=== PATIENT | male | born 1950 | race Two or more races ===

== ENCOUNTER 2024-05-24 17:55 | Inpatient (IN) | payer MEDICARE, MEDICAID ==
[~2024-05-24] VITALS: Ht 172.7 cm; Wt 83.0 kg
[2024-05-24 18:30] VITALS: PULSE 98; RESP 12; O2SAT 98
[2024-05-24 18:36] LABS: Basophils # (auto) 0 10 ^3/uL (0-0.2); Basophils % (auto) 0.2 % (0.0-2.0); Eosinophils # (auto) 0.2 10 ^3/uL (0-0.8); Eosinophils % (auto) 3.7 % (0.0-7.0); Hematocrit 41.7 % (41.0-53.0); Lymphocytes # (auto) 1.6 10 ^3/uL (0.4-5.4); Lymphocytes % (auto) 24.5 % (10.0-50.0); Mean Corpuscular Hemoglobin 30.5 pg (28.0-32.0); Mean Corpuscular Hgb Conc. 33.6 g/dL (32.0-36.0); Mean Corpuscular Volume 90.8 fL (80.0-100.0); Monocytes # (auto) 0.5 10 ^3/uL (0-1.3); Monocytes % (auto) 7.9 % (0.0-12.0); Neutrophils # (auto) 4.3 10 ^3/uL (1.6-8.6); Neutrophils % (auto) 63.7 % (37.0-80.0); Platelet Count (auto) 190 10^3/uL (140-450); Red Blood Cells 4.59 10^6/uL (4.5-5.90); Red Cell Distribution Width 13.7 % (11.8-14.3); White Blood Cell 6.7 10^3/uL (4.4-10.8)
--- NOTE | 2024-05-24 18:48 | ED.PDOC ---
HPI (NEURO) HPI Comments 74y F who presents to the ED via EMS for chief complaint of generalized weakness. Per EMS, pt son called after pt had near syncopal episode at home. Pt son upon EMS arrival states pt has been having this generalized weakness for the past 2 days getting progressively worse. EMS states pt had low SBP upon arrival and pt was given 100 ml ns with improvement of blood pressure and was brought to the ED for further evaluation. Pt in the ED, is alert and oriented but states he is not in pain. Pt has BP of 129/55 in the ED with all other vitals in normal range. Pt otherwise denies any other symptoms at this time. Chief Complaint: General Weakness Time Seen by MD: 18:43 Reviewed Notes: Software Asset Management Analyst Notes, Medications Information Source: Patient, Emergency Med Personnel Mode of Arrival: EMS Brought in by: EMS Past Medical History PAST MEDICAL HISTORY: Unknown Surgical History: Unknown Family History Family History: Unknown Social History Smoker: Non-Smoker Alcohol: Denies ETOH Use Drugs: Denies Drug Use Lives In: Home Constitutional: denies: chills, diaphoresis, fatigue, fever, malaise, sweats, weakness, others EENTM: denies: blurred vision, double vision, ear bleeding, ear discharge, ear drainage, ear pain, ear ringing, eye pain, eye redness, hearing loss, mouth pain, mouth swelling, nasal discharge, nose bleeding, nose congestion, nose pain, photophobia, tearing, throat pain, throat swelling, voice changes, others Respiratory: denies: cough, hemoptysis, orthopnea, SOB at rest, shortness of breath, SOB with excertion, stridor, wheezing, others Cardiovascular: denies: chest pain, dizzy spells, diaphoresis, Dyspnea on exertion, edema, irregular heart beat, left arm pain, lightheadedness, p alpitations, PND, syncope, others Gastrointestinal: denies: abdomen distended, abdominal pain, blood streaked bowels, constipated, diarrhea, dysphagia, difficulty swallowing, hematemesis, melena, nausea, poor appetite, poor fluid intake, rectal bleeding, rectal pain, vomiting, others Genitourinary: denies: burning, dysuria, flank pain, frequency, hematuria, incontinence, penile discharge, penile sore, pain, testicle pain, testicle swelling, urgency, others Neurological: reports: weakness; denies: dizziness, fainting, headache, left sided numbness, left sided weakness, numbness, paresthesia, pre-existing deficit, right sided numbness, right sided weakness, seizure, speech problems, tingling, tremors, others Musculoskeletal: denies: back pain, gout, joint pain, joint swelling, muscle pain, muscle stiffness, neck pain, others Integumetry: denies: bruises, change in color, change in hair/nails, dryness, laceration, lesions, lumps, rash, wounds, others Allergic/Immunocompromised: denies: Difficulty Healing, Frequent Infections, Hives, Itching, others Hematologic/Lymphatic: denies: anemia, blood clots, easy bleeding, easy bruising, swollen glands, others Endocrine: denies: excessive hunger, excessive sweating, excessive thirst, excessive urination, flushing, intolerance to cold, intolerance to heat, unexplained weight gain, unexplained weight loss, others Psychiatric: denies: anxiety, bipolar disorder, depression, hopeless, panic disorder, schizophrenia, sleepless, suicidal, others All Other Systems: Reviewed and Negative Physical Exam General Appearance: No Apparent Distress, Normal HEENT: Normal ENT Inspection, Pharynx Normal, TMs Normal Neck: Full Range of Motion, Non-Tender, Normal, Normal Inspection Respiratory: Chest Non-Tender, Lungs Clear, No Accessory Muscle Use, No Respiratory Distress, Normal Breath Sounds Cardiovascular: No Edema, No JVD, No Murmur, No Gallop, Normal Peripheral Pulses, Regular Rate/Rhythm Breast Exam: Deferred Gastrointestinal: No Organomegaly, Non Tender, No Pulsatile Mass, Normal Bowel Sounds, Soft Genitalia: Deferred Pelvic: Deferred Rectal: Deferred Extremities: No calf tenderness, Normal capillary refill, Normal inspection, Normal range of motion, Non-tender, No pedal edema Musculoskeletal : Apperance: Normal Neurologic: Alert, guest relations officer II-XII nml as Tested, No Motor Deficits, Normal Affect, Normal Mood, No Sensory Deficits Cerebellar Function: Normal Reflexes: NOT DONE Skin: Dry, Normal Color, Warm Lymphatic: No Adenopathy Was a procedure done? Was a procedure done?: No Differential Diagnosis (SZ) General Weakness: Anemia, Dehydration, Electrolyte imbalance, Encephalopathy, Hypoglycemia, Hypotension, Vertigo: central, Vertigo: peripheral Headache: Post Lumber Puncture, Sinusitis, Trigeminal Neuralgia X-Ray, Labs, Meds, VS Vital Signs Date Time Temp Pulse Resp B/P (MAP) Pulse Ox O2 Delivery O2 Flow Rate FiO2 05/24/24 21:21 94 05/24/24 21:00 94 12 111/54 (73) 96 05/24/24 20:00 97 05/24/24 19:30 97 14 97 Room Air* 0 05/24/24 19:30 97.4 97 14 105/50 (68) 97 97.4 05/24/24 18:30 98 12 98 Room Air* 0 05/24/24 18:30 98 12 129/55 (79) 98 05/24/24 18:15 98.2 101 18 135/79 (97) 97 05/24/24 18:00 98 Lab Test 05/24/24 21:31 05/24/24 19:35 05/24/24 19:24 05/24/24 18:24 Range/Units Troponin I High Sensitivity 4 4 5 </=54 ng/L Urine Color Colorless Yellow Urine Clarity Clear Clear Urine pH 5.0 5.0-9.0 Urine Specific [place] 1.008 1.001-1.035 Urine Protein 1+ H Negative Urine Ketones Negative Negative Urine Blood Negative Negative /uL Urine Nitrite Negative Negative Urine Bilirubin Negative Negative Urine Urobilinogen Normal Negative mg/dL Urine Leukocyte Esterase 1+ Negative /uL Urine RBC 1 0 - 3 /hpf Urine WBC 3 0 - 3 /hpf Urine Squamous Epithelial Cells None seen <5 /hpf Urine Bacteria None seen None Seen /hpf Urine Hyaline Casts Few 0 - 2 /lpf Urine Glucose 3+ H Normal mg/dL White Blood Count 6.7 4.4-10.8 10^3/uL Red Blood Count 4.59 4.5-5.90 10^6/uL Hemoglobin 14.0 13.5-17.5 g/dL Hematocrit 41.7 41.0-53.0 % Mean Corpuscular Volume 90.8 80.0-100.0 fL Mean Corpuscular Hemoglobin 30.5 28.0-32.0 pg Mean Corpuscular Hemoglobin Concent 33.6 32.0-36.0 g/dL Red Cell Distribution Width 13.7 11.8-14.3 % Platelet Count 190 140-450 10^3/uL Mean Platelet Volume 8.8 6.9-10.8 fL Neutrophils (%) (Auto) 63.7 37.0-80.0 % Lymphocytes (%) (Auto) 24.5 10.0-50.0 % Monocytes (%) (Auto) 7.9 0.0-12.0 % Eosinophils (%) (Auto) 3.7 0.0-7.0 % Basophils (%) (Auto) 0.2 0.0-2.0 % Neutrophils # (Auto) 4.3 1.6-8.6 10 ^3/uL Lymphocytes # (Auto) 1.6 0.4-5.4 10 ^3/uL Monocytes # (Auto) 0.5 0-1.3 10 ^3/uL Eosinophils # (Auto) 0.2 0-0.8 10 ^3/uL Basophils # (Auto) 0 0-0.2 10 ^3/uL Nucleated Red Blood Cells 0.0 % Sodium Level 136 136-145 mmol/L Potassium Level 4.8 3.5-5.1 mmol/L Chloride Level 105 98-107 mmol/L Carbon Dioxide Level 18 L 20-31 mmol/L Anion Gap 13 5-15 Blood Urea Nitrogen 42 H 9-23 mg/dL Creatinine 3.45 H 0.700-1.30 mg/dL Glomerular Filtration Rate Calc 18 >90 mL/min BUN/Creatinine Ratio 12.2 10.0-20.0 Serum Glucose 310 H 74-106 mg/dL Calcium Level 9.6 8.7-10.4 mg/dL Total Bilirubin 0.4 0.2-1.0 mg/dL Aspartate Amino Transferase (AST) 35 13-40 U/L Alanine Aminotransferase (ALT) 33 7-40 U/L Alkaline Phosphatase 104 46-116 U/L Total Protein 7.6 5.7-8.2 g/dL Albumin 4.8 3.2-4.8 g/dL [address] [address] Ph: [phone] DIAGNOSTIC IMAGING Diagnostic Imaging Report : [id number] Signed PATIENT: JASON LIND ACCT: [id number] UNIT: [id number] : 1950 LOC: ER ROOM / BED: / AGE / SEX: 74 / M ADM STATUS: REG ER SERVICE 08 ORDERING PHYSICIAN: ESTRELLA DAVIS MD PROCEDURE(s): HWOCT - HEAD WITHOUT CONTRAST REASON: syncope ORDER NUMBER(s): [id number], ACCESSION NUMBER(s): [id number] EXAM: CT HEAD WITHOUT CONTRAST INDICATION: syncope TECHNIQUE: CT of the head without intravenous contrast. Radiation Dose : 1. Head: CT Dose: CTDI volume is 66 mGy. Dose-length product is 1176 mGy*cm The dose indicators for CT are the volume Computed Tomography (CT) Dose Index (CTDIvol) and the Dose Length Product (DLP), and are measured in units of mGy and mGy-cm, respectively. These indicators are not patient dose, but values generated from the CT scanner acquisition factors. The report includes radiation exposure data for exposures received during this examination. COMPARISON: None FINDINGS: There is no evidence of acute intracranial hemorrhage, extra-axial collection, mass effect, midline shift, herniation or hydrocephalus. The ventricles, sulci and cisterns are age appropriate. The orozco-white differentiation is intact. Patchy periventricular and subcortical white matter hypoattenuation is nonspecific but may be related to small vessel ischemic disease. The visualized paranasal sinuses and mastoid air cells are clear. The surrounding soft tissues and osseous structures are unremarkable. IMPRESSION: 1. No acute intracranial abnormality. Radiation optimization: All CT scans at this facility use at least one of these dose optimization techniques: automated exposure control mA and/or kV adjustment per patient size (includes targeted exams where dose is matched to clinical indication) or iterative reconstruction. ATED BY: WALLY ROJAS MD DICTATED DATE/TIME: 05/24/242105 SIGNED BY: WALLY ROJAS MD SIGNED DATE/TIME: 05/24/242105 CC: [place] [id number] Ph: [phone] DIAGNOSTIC IMAGING Diagnostic Imaging Report : [id number] Signed PATIENT: JASON LIND ACCT: [id number] UNIT: [id number] : 1950 LOC: ER ROOM / BED: / AGE / SEX: 74 / M ADM STATUS: REG ER SERVICE 08 ORDERING PHYSICIAN: ESTRELLA DAVIS MD PROCEDURE(s): CXRP - CHEST PORTABLE REASON: syncope ORDER NUMBER(s): [id number], ACCESSION NUMBER(s): [id number] CHEST RADIOGRAPH Indication: syncope Technique: Single frontal view of the chest was obtained Comparison: None FINDINGS: Lines and Tubes: None Lungs: No focal consolidation. Pleura: No effusion. No pneumothorax. Cardiomediastinal contours: Unremarkable Bones: No acute osseous abnormality. IMPRESSION: No acute cardiopulmonary disease. ATED BY: SOY GOMEZ DO DICTATED DATE/TIME: 05/24/242107 SIGNED BY: SOY GOMEZ DO SIGNED DATE/TIME: 05/24/242107 CC: Time of 1ST Reevaluation: 19:15 Reevaluation 1ST: Unchanged Patient Education/Counseling: Diagnosis, Treatment Family Education/Counseling: No Family Present Departure 1 Departure Time of Disposition: 22:38 (Patient with a worsening weakness and an MONICO. Patient also with hyperglycemia. Patient's CBC was unremarkable BNP was remarkable for an elevated creatinine and elevated glucose. A personally evaluated the patient's CT brain which is shows a benign brain. We will admit patient for further workup) Impression: Primary Impression: Weakness Additional Impressions: MONICO (acute kidney injury) Uncontrolled diabetes mellitus Qualified Codes: E11.65 - Type 2 diabetes mellitus with hyperglycemia Disposition: ADMITTED INPATIENT Admit to: Med Surg Condition: Serious Critical Care Note Critical Care Time?: No Stability Stability form required: No Heart Score Heart Score: Heart Score Response (Comments) Value History N/A 0 EKG N/A 0 Age N/A 0 Risk Factors N/A 0 Troponin N/A 0 Total 0 I personally scribed for ESTRELLA DAVIS MD ([email or web address]) on 05/24/24 at 18:48. Electronically submitted by Loni Menjivar ([employer]). I personally scribed for ESTRELLA DAVIS MD (NINAO) on 05/24/24 at 21:21. Electronically submitted by Loni Menjivar ([employer]). ESTRELLA DAVIS MD May 24, 2024 18:48
[2024-05-24 18:51] LABS: Alanine Aminotransferase 33 U/L (7-40); Albumin 4.8 g/dL (3.2-4.8); Alkaline Phosphatase 104 U/L (46-116); Anion Gap 13 (5-15); Aspartate Aminotransferase 35 U/L (13-40); BUN/Creatinine Ratio 12.2 (10.0-20.0); Blood Urea Nitrogen 42 mg/dL (9-23); Calcium 9.6 mg/dL (8.7-10.4); Carbon Dioxide 18 mmol/L (20-31); Chloride 105 mmol/L (98-107); Glucose 310 mg/dL (74-106); Potassium 4.8 mmol/L (3.5-5.1); Sodium 136 mmol/L (136-145)
[2024-05-24 18:52] LABS: Bilirubin, Total 0.4 mg/dL (0.2-1.0); Total Protein 7.6 g/dL (5.7-8.2)
[2024-05-24 19:30] VITALS: PULSE 97; RESP 14; O2SAT 97
[2024-05-24 19:38] LABS: Urine Bacteria None Seen /hpf (None Seen)
[2024-05-24 19:50] LABS: Urine Blood Negative /uL (Negative); Urine Clarity Clear (Clear); Urine Color Colorless (Yellow); Urine Hyaline Cast FEW /lpf (0 - 2); Urine Protein, UAD 1+ (Negative); Urine Specific Gravity 1.008 (1.001-1.035); Urine Urobilinogen Normal (Negative); Urine WBC 3 /hpf (0 - 3)
--- NOTE | 2024-05-24 21:08 | DVH ---
EXAM: CT HEAD WITHOUT CONTRAST INDICATION: syncope TECHNIQUE: CT of the head without intravenous contrast. Radiation Dose : 1. Head: CT Dose: CTDI volume is 66 mGy. Dose-length product is 1176 mGy*cm The dose indicators for CT are the volume Computed Tomography (CT) Dose Index (CTDIvol) and the Dose Length Product (DLP), and are measured in units of mGy and mGy-cm, respectively. These indicators are not patient dose, but values generated from the CT scanner acquisition factors. The report includes radiation exposure data for exposures received during this examination. COMPARISON: None FINDINGS: There is no evidence of acute intracranial hemorrhage, extra-axial collection, mass effect, midline s hift, herniation or hydrocephalus. The ventricles, sulci and cisterns are age appropriate. The orozco-white differentiation is intact. Patchy periventricular and subcortical white matter hypoattenuation is nonspecific but may be related to small vessel ischemic disease. The visualized paranasal sinuses and mastoid air cells are clear. The surrounding soft tissues and osseous structures are unremarkable. IMPRESSION: 1. No acute intracranial abnormality. Radiation optimization: All CT scans at this facility use at least one of these dose optimization vivian hniques: automated exposure control mA and/or kV adjustment per patient size (includes targeted exam s where dose is matched to clinical indication) or iterative reconstruction.
--- NOTE | 2024-05-24 21:11 | DVH ---
CHEST RADIOGRAPH Indication: syncope Technique: Single frontal view of the chest was obtained Comparison: None FINDINGS: Lines and Tubes: None Lungs: No focal consolidation. Pleura: No effusion. No pneumothorax. Cardiomediastinal contours: Unremarkable Bones: No acute osseous abnormality. IMPRESSION: No acute cardiopulmonary disease.
[2024-05-24] MEDS: SODIUM CHLORIDE 0.9% 1,000 ML IV ONE (22:41)
[2024-05-24] MEDS ORDERED: ONDANSETRON HCL 4 MG/2 ML VIAL IV PRN (23:15)
[2024-05-24] MEDS ORDERED: DEXTROSE (50%) 50ML SYRG IV PRN (23:15)
[2024-05-24] MEDS ORDERED: DOCUSATE SOD 100 MG CAP PO PRN (23:15)
[2024-05-24] MEDS ORDERED: hydrALAZINE HCL 20 MG/ML VL IV PRN (23:15)
--- NOTE | 2024-05-24 23:33 | DVHHP2 ---
History of Present Illness Reason for Visit: Generalized weakness History of Present Illness The patient is a 74-year-old male with past medical history of hypertension, DM, and hyperlipidemia who presented to [facility] ED for evaluation of generalized weakness. As reported by EMS, patient's son called after patient had near syncopal episode at home. Patient has been having generalized weakness for the past 2 days, getting worse today that prompted this visit. Patient was seen and evaluated in the ED, laboratory data shows WBC 6.7, platelets 190, sodium 136, potassium 4.8, BUN 42, creatinine 3.45, glucose 310, troponin 5. Head CT showed no acute intracranial abnormality. Please see medication orders section in the computer. On my assessment, patient denied chest pain, no headache, no dizziness, no diaphoresis, no shortness of breath, no nausea, no vomiting, no fever, no chills. Patient was admitted for further evaluation and medical management. Past Medical History DM, hypertension, HLD. Past Surgical History No surgical history on file Family History Reviewed, noncontributory to the management of this case. Past Social History The patient lives at home, denies smoking, alcohol or illicit drugs abuse. Review of Systems Constitutional: Yes: Weakness; No: Fever, Chills, Sweats, Malaise, Other Eyes: No: Pain, Vision change, Conjunctivae inflammation, Eyelid inflammation, Other, Redness ENT: No: Ear pain, Ear discharge, Nose pain, Nose discharge, Nose congestion, Mouth pain, Mouth swelling, Throat pain, Throat swelling, Other Respiratory: No: Cough, Dry, Shortness of breath, SOB with excertion, Wheezing, Hemoptysis, Pleuritic Pain, Sputum, Wheezing, Other Cardiovascular: No: Chest Pain, Palpitations, Orthopnea, Paroxysmal Noc. Dyspnea, Edema, Lt Headedness, Other Gastrointestinal: No: Nausea, Vomiting, Abdominal Pain, Diarrhea, Constipation, Melena, Hematochezia, Other Genitourinary: No Dysuria, No Frequency, No Incontinence, No Hematuria, No Retention, No Other Musculoskeletal: No: other, neck pain, shoulder pain, arm pain, back pain, hand pain, leg pain, foot pain Skin: No: Rash, Lesions, Jaundice, Bruising, Other Neurological: No: Weakness, Numbness, Incoordination, Change in speech, Confusion, Seizures, Other Allergies: Coded Allergies: NO KNOWN ALLERGIES (Unverified , 05/25/24) Medications Current Medications Medications Dose Ordered Sig/Flor Route Start Time Stop Time Status Last Admin Dose Admin Aspirin 81 mg DAILY PO 05/25/24 10:00 UNV Atorvastatin Calcium 10 mg HS PO 05/25/24 22:00 UNV Tamsulosin HCl 0.4 mg QPM PO 05/25/24 18:00 UNV Hydralazine HCl 10 mg Q6HP PRN IV 05/24/24 23:15 UNV Diagnostic Test (Pha) 1 strip ACHS 05/25/24 07:00 UNV Insulin Human Regular HS SC 05/25/24 22:00 UNV Insulin Human Regular AC SC 05/25/24 07:00 UNV Dextrose 50 ml UD PRN IV 05/24/24 23:15 UNV Sodium Chloride 1,000 ml @ 60 mls/hr [id number] IV 05/24/24 23:15 UNV Acetaminophen/ Hydrocodone Bitart 1 tab Q4HP PRN PO 05/24/24 23:15 UNV Ondansetron HCl 4 mg Q4HP PRN IV 05/24/24 23:15 UNV Docusate Sodium 100 mg BIDPRN PRN PO 05/24/24 23:15 UNV Acetaminophen 650 mg Q6HP PRN PO 05/24/24 23:15 UNV Exam Vital Signs Vital Signs Date Time Temp Pulse Resp B/P (MAP) Pulse Ox O2 Delivery O2 Flow Rate FiO2 05/24/24 21:21 94 05/24/24 21:00 12 111/54 (73) 96 05/24/24 19:30 Room Air* 0 21 05/24/24 19:30 97.4 97.4 General Appearance: Alert, Cooperative, No acute distress HEENT: Atraumatic, PERRLA, EOMI, Mucous membr. moist/pink Respiratory: Clear to auscultation, Normal air movement Cardiovascular: Regular rate, Normal S1, Normal S2, No murmurs Abdominal: Normal bowel sounds, Soft, No tenderness, No hepatospenomegaly, No masses Extremities: No clubbing, No cyanosis, No edema, Normal pulses, No tenderness/swelling Skin: No rashes, No breakdown, No significant lesion Neuro: Normal speech, Normal tone, Sensation intact, Cranial nerves 3-12 NL, Reflexes 2+, Other (Generalized weakness) Psych/Mental Status: Mental status NL, Mood NL Labs/Xrays Labs Test 05/24/24 21:31 05/24/24 19:35 05/24/24 18:24 Range/Units Troponin I High Sensitivity 4 </=54 ng/L Urine Color Colorless Yellow Urine Clarity Clear Clear Urine pH 5.0 5.0-9.0 Urine Specific [place] 1.008 1.001-1.035 Urine Protein 1+ H Negative Urine Ketones Negative Negative Urine Blood Negative Negative /uL Urine Nitrite Negative Negative Urine Bilirubin Negative Negative Urine Urobilinogen Normal Negative mg/dL Urine Leukocyte Esterase 1+ Negative /uL Urine RBC 1 0 - 3 /hpf Urine WBC 3 0 - 3 /hpf Urine Squamous Epithelial Cells None seen <5 /hpf Urine Bacteria None seen None Seen /hpf Urine Hyaline Casts Few 0 - 2 /lpf Urine Glucose 3+ H Normal mg/dL White Blood Count 6.7 4.4-10.8 10^3/uL Red Blood Count 4.59 4.5-5.90 10^6/uL Hemoglobin 14.0 13.5-17.5 g/dL Hematocrit 41.7 41.0-53.0 % Mean Corpuscular Volume 90.8 80.0-100.0 fL Mean Corpuscular Hemoglobin 30.5 28.0-32.0 pg Mean Corpuscular Hemoglobin Concent 33.6 32.0-36.0 g/dL Red Cell Distribution Width 13.7 11.8-14.3 % Platelet Count 190 140-450 10^3/uL Mean Platelet Volume 8.8 6.9-10.8 fL Neutrophils (%) (Auto) 63.7 37.0-80.0 % Lymphocytes (%) (Auto) 24.5 10.0-50.0 % Monocytes (%) (Auto) 7.9 0.0-12.0 % Eosinophils (%) (Auto) 3.7 0.0-7.0 % Basophils (%) (Auto) 0.2 0.0-2.0 % Neutrophils # (Auto) 4.3 1.6-8.6 10 ^3/uL Lymphocytes # (Auto) 1.6 0.4-5.4 10 ^3/uL Monocytes # (Auto) 0.5 0-1.3 10 ^3/uL Eosinophils # (Auto) 0.2 0-0.8 10 ^3/uL Basophils # (Auto) 0 0-0.2 10 ^3/uL Nucleated Red Blood Cells 0.0 % Sodium Level 136 136-145 mmol/L Potassium Level 4.8 3.5-5.1 mmol/L Chloride Level 105 98-107 mmol/L Carbon Dioxide Level 18 L 20-31 mmol/L Anion Gap 13 5-15 Blood Urea Nitrogen 42 H 9-23 mg/dL Creatinine 3.45 H 0.700-1.30 mg/dL Glomerular Filtration Rate Calc 18 >90 mL/min BUN/Creatinine Ratio 12.2 10.0-20.0 Serum Glucose 310 H 74-106 mg/dL Calcium Level 9.6 8.7-10.4 mg/dL Total Bilirubin 0.4 0.2-1.0 mg/dL Aspartate Amino Transferase (AST) 35 13-40 U/L Alanine Aminotransferase (ALT) 33 7-40 U/L Alkaline Phosphatase 104 46-116 U/L Total Protein 7.6 5.7-8.2 g/dL Albumin 4.8 3.2-4.8 g/dL PATIENT: JASON LIND ACCT: [id number] UNIT: [id number] : 1950 LOC: ER ROOM / BED: / AGE / SEX: 74 / M ADM STATUS: REG ER SERVICE 08 ORDERING PHYSICIAN: ESTRELLA DAVIS MD PROCEDURE(s): HWOCT - HEAD WITHOUT CONTRAST REASON: syncope ORDER NUMBER(s): [id number], ACCESSION NUMBER(s): [id number] EXAM: CT HEAD WITHOUT CONTRAST INDICATION: syncope TECHNIQUE: CT of the head without intravenous contrast. Radiation Dose : 1. Head: CT Dose: CTDI volume is 66 mGy. Dose-length product is 1176 mGy*cm The dose indicators for CT are the volume Computed Tomography (CT) Dose Index (CTDIvol) and the Dose Length Product (DLP), and are measured in units of mGy and mGy-cm, respectively. These indicators are not patient dose, but values generated from the CT scanner acquisition factors. The report includes radiation exposure data for exposures received during this examination. COMPARISON: None FINDINGS: There is no evidence of acute intracranial hemorrhage, extra-axial collection, mass effect, midline shift, herniation or hydrocephalus. The ventricles, sulci and cisterns are age appropriate. The orozco-white differentiation is intact. Patchy periventricular and subcortical white matter hypoattenuation is nons pecific but may be related to small vessel ischemic disease. The visualized paranasal sinuses and mastoid air cells are clear. The surrounding soft tissues and osseous structures are unremarkable. IMPRESSION: 1. No acute intracranial abnormality. ORDERING PHYSICIAN: ESTRELLA DAVIS MD PROCEDURE(s): CXRP - CHEST PORTABLE REASON: syncope ORDER NUMBER(s): [id number], ACCESSION NUMBER(s): [id number] CHEST RADIOGRAPH Indication: syncope Technique: Single frontal view of the chest was obtained Comparison: None FINDINGS: Lines and Tubes: None Lungs: No focal consolidation. Pleura: No effusion. No pneumothorax. Cardiomediastinal contours: Unremarkable Bones: No acute osseous abnormality. IMPRESSION: No acute cardiopulmonary disease. Assessment/Plan Assessment/Plan Generalized weakness MONICO (acute kidney injury) Uncontrolled diabetes mellitus Type 2 diabetes mellitus with hyperglycemia Plan 1. Admit to telemetry unit 2. Breathing treatment 3. Pain control management 4. Management of fluids and electrolytes 5. Consultation for hospitalist 6. Diagnostic tests head CT 7. DVT prophylaxis-on SCDs 8. Repeat labs CBC, CMP in a.m. 9. Continue with current medical management 10. Treatment plan discussed with patient and RN. Patient verbalized understanding. Plan discussed with: Patient, Other (RN) My Orders Orders - TODD MORALES DNP Procedure Category Date Status Time Aspirin Tablet PHA 05/25/24 Logged 10:00 Atorvastatin (Lipitor) PHA 05/25/24 Logged 22:00 Consistent DIET 05/25/24 Transmitted Carb(Ccho)Diabetes Breakfast Tamsulosin PHA 05/25/24 Logged Hydrochloride (Flomax) 18:00 Hydralazine Injection PHA 05/24/24 Logged (Apresoline Inject 23:15 *[facility] CONS 05/24/24 Transmitted -[place] 23:08 Glucose Blood PHA 05/25/24 Logged (Accu-Chek Comfort 07:00 Insulin R (Human) PHA 05/25/24 Logged (Insulin R) 22:00 Insulin R (Human) PHA 05/25/24 Logged (Insulin R) 07:00 Dextrose 50% Syringe PHA 05/24/24 Logged 23:15 Allergies CARMEN 05/24/24 In Process 23:08 Code Status CODE 05/24/24 Transmitted 23:08 Sodium Chloride 0.9% PHA 05/24/24 Logged 23:15 Oxygen Per Hour RT 05/24/24 Transmitted 23:08 Hydrocodone-Acet PHA 05/24/24 Logged 5/325mg Tab ([place] 23:15 Ondansetron Hcl PHA 05/24/24 Logged (Zofran) 23:15 Docusate Sodium PHA 05/24/24 Logged Capsule (Colace 23:15 Fall Risk Precautions CARMEN 05/24/[address] 23:08 Complete Blood Count LAB 05/25/24 Verified 04:00 Comprehensive LAB 05/25/24 Verified Metabolic Panel 04:00 Condition: Serious CARMEN 05/24/24 In Process 23:08 Acetaminophen Tablet [facility] 05/24/24 Logged (Tylenol Tablet) 23:15 Sequential CARMEN 05/24/24 In Process Compression Device Problem List: (1) Generalized weakness (2) Uncontrolled diabetes mellitus (3) MONICO (acute kidney injury) (4) Type 2 diabetes mellitus with hyperglycemia Date of Service: May 24, 2024 Billing Provider: TODD MORALES DNP Common Visit Codes: [id number] INP/OBS CARE (HIGH) TODD MORALES DNP May 24, 2024 23:33
[2024-05-24] MEDS ORDERED: NITROGLYCERIN 0.4 MG SL TAB SL PRN (23:45)
[2024-05-24] MEDS ORDERED: MORPHINE SULFATE INJ 2 MG/ml SYRG IV PRN (23:45)
[2024-05-25] VITALS (9 sets, daily range): BP systolic 120–145; BP diastolic 52–71; PULSE 87–102; RESP 14–18; TEMP 97.4–98; O2SAT 94–96
[2024-05-25] MEDS: SODIUM CHLORIDE 0.9% 1,000 ML IV SCH (02:18)
[2024-05-25] MEDS: ACCU-CHEK COMFORT CURVE STRIP VI SCH (06:20)
[2024-05-25] MEDS: InsuLIN REG 1unit/0.01ml Soln (100units/ml) SC SCH ×4 (06:23→21:45)
[2024-05-25 06:31] LABS: Basophils # (auto) 0 10 ^3/uL (0-0.2); Basophils % (auto) 0.3 % (0.0-2.0); Eosinophils # (auto) 0.3 10 ^3/uL (0-0.8); Eosinophils % (auto) 4.7 % (0.0-7.0); Hematocrit 39.2 % (41.0-53.0); Hemoglobin 13.3 g/dL (13.5-17.5); Lymphocytes # (auto) 1.9 10 ^3/uL (0.4-5.4); Lymphocytes % (auto) 26.9 % (10.0-50.0); Mean Corpuscular Hemoglobin 30.9 pg (28.0-32.0); Mean Corpuscular Volume 90.9 fL (80.0-100.0); Monocytes # (auto) 0.4 10 ^3/uL (0-1.3); Monocytes % (auto) 6.4 % (0.0-12.0); Neutrophils # (auto) 4.3 10 ^3/uL (1.6-8.6); Neutrophils % (auto) 61.7 % (37.0-80.0); Platelet Count (auto) 202 10^3/uL (140-450); Red Blood Cells 4.31 10^6/uL (4.5-5.90); Red Cell Distribution Width 13.6 % (11.8-14.3); White Blood Cell 6.9 10^3/uL (4.4-10.8)
[2024-05-25 06:43] LABS: Alanine Aminotransferase 27 U/L (7-40); Alkaline Phosphatase 98 U/L (46-116); Anion Gap 13 (5-15); BUN/Creatinine Ratio 10.8 (10.0-20.0); Blood Urea Nitrogen 37 mg/dL (9-23); Calcium 9.5 mg/dL (8.7-10.4); Carbon Dioxide 20 mmol/L (20-31); Chloride 107 mmol/L (98-107); Potassium 4.7 mmol/L (3.5-5.1); Sodium 140 mmol/L (136-145)
[2024-05-25 06:44] LABS: Albumin 4.6 g/dL (3.2-4.8); Aspartate Aminotransferase 24 U/L (13-40); Bilirubin, Total 0.5 mg/dL (0.2-1.0); Glucose 194 mg/dL (74-106); Total Protein 7.6 g/dL (5.7-8.2)
[2024-05-25] MEDS ORDERED: GEMF-66 PO (09:05)
[2024-05-25] MEDS ORDERED: FURO40TA4 PO (09:05)
[2024-05-25] MEDS ORDERED: ALLO100T PO (09:05)
[2024-05-25] MEDS ORDERED: ATOR40TA52 PO (09:05)
[2024-05-25] MEDS ORDERED: NETA0.02 EACHEYE (09:05)
[2024-05-25] MEDS ORDERED: OMEP1CAP70 PO (09:05)
[2024-05-25] MEDS ORDERED: LISI10TA34 PO (09:05)
[2024-05-25] MEDS ORDERED: TAMS0.4C39 PO (09:05)
[2024-05-25] MEDS ORDERED: EZET-10 PO (09:05)
[2024-05-25] MEDS ORDERED: CLOP75TA70 PO (09:05)
[2024-05-25] MEDS ORDERED: MEMA1TAB5 PO ×2 (09:05→10:49)
[2024-05-25] MEDS ORDERED: HYDR50TA47 PO (09:05)
[2024-05-25] MEDS: ASPirin 81 mg TAB PO SCH (09:50)
[2024-05-25] MEDS ORDERED: INSU1INJ19 SC (10:49)
[2024-05-25] MEDS ORDERED: ASPI81CH74 PO (10:49)
[2024-05-25] MEDS ORDERED: BRIM0.159 OP (10:49)
[2024-05-25] MEDS ORDERED: SODI10PA PO (10:49)
[2024-05-25] MEDS ORDERED: INSREGI (10:49)
--- NOTE | 2024-05-25 14:59 | DVHPNRES ---
Progress Note Date Seen: May 25, 2024 Resident Creating Document: JONNATHAN PLASCENCIA RESIDENT Medical Necessity Reason Pt with a Central, PICC or Fol: No Subjective Review of Systems Gabriel Fernandes is a 74 years old sami language speaking male with a PMH of HTN, dm, CKD presented to the ED with the chief complaints of weakness and syncope since day prior to admission. Patient reported yesterday he has been feeling generalized weakness, he has been taking rest on bed, he passed out but unable to recall what happened exactly before passing out. Patient was reported he has been feeling weakness, unable to eat, having feeling dizzy when he suddenly wake up from the chair or bed. Patient thought his weakness is due to low blood pressure and anemia. On my assessment patient denies fever, nausea, vomiting, diarrhea, chest pain, palpitations, diaphoresis and other associated symptoms. PMH: Type 2 DM, HTN, HLD, CKD PSH: Denies Family history: Reviewed, noncontributory Social history: Patient lives at home with family. Denies smoking, alcohol and other drug abuse Patient seen and examined at the bedside. Patient reported mild improvement in his symptoms since admission. Patient is currently alert, oriented x3 and able to answer all questions. Currently on cardiac diet. continuously monitor blood glucose. Patient reports: Feels better Objective vital signs Vital Sign Date Time Temp Pulse Resp B/P (MAP) Pulse Ox O2 Delivery O2 Flow Rate FiO2 05/25/24 13:00 97.5 94 14 134/59 (84) 95 97.5 05/25/24 08:00 Room Air* 0 21 Total Intake and Output 05/24/24 05/24/24 05/25/24 15:00 23:00 07:00 Intake Total 1000 ml Balance 1000 ml medications Current Medications Medications Dose Ordered Sig/Flor Route Start Time Stop Time Status Last Admin Dose Admin Aspirin 81 mg DAILY PO 05/25/24 10:00 05/25/24 09:50 81 MG Atorvastatin Calcium 10 mg HS PO 05/25/24 22:00 Tamsulosin HCl 0.4 mg QPM PO 05/25/24 18:00 Hydralazine HCl 10 mg Q6HP PRN IV 05/24/24 23:15 Diagnostic Test (Pha) 1 strip ACHS 05/25/24 07:00 05/25/24 12:14 1 STRIP Insulin Human Regular HS SC 05/25/24 22:00 Insulin Human Regular AC SC 05/25/24 07:00 05/25/24 11:30 9 UNITS Dextrose 50 ml UD PRN IV 05/24/24 23:15 Sodium Chloride 1,000 ml @ 60 mls/hr [id number] IV 05/24/24 23:15 05/25/24 02:18 60 MLS/HR Acetaminophen/ Hydrocodone Bitart 1 tab Q4HP PRN PO 05/24/24 23:15 Ondansetron HCl 4 mg Q4HP PRN IV 05/24/24 23:15 Docusate Sodium 100 mg BIDPRN PRN PO 05/24/24 23:15 Acetaminophen 650 mg Q6HP PRN PO 05/24/24 23:15 Nitroglycerin 0.4 mg Q5MINP PRN SL 05/24/24 23:45 Morphine Sulfate 2 mg Q30M PRN IV 05/24/24 23:45 Insulin Human Regular 7 units TID SC 05/25/24 14:45 UNV Insulin Glargine 20 units QAM SC 05/25/24 22:00 UNV Examination Pt is lying on bed General Appearance: Alert, Oriented X3, Cooperative, Not in acute distress HEENT: Atraumatic, Mucous membranes moist/pink Respiratory: Clear to auscultation, Normal air movement, No added sounds Cardiovascular: Regular rate, Normal S1, Normal S2, No murmurs Abdominal: Active bowel sounds, Soft, no distention, no tenderness Extremities: No edema, Normal pulses, No tenderness/swelling Skin: No Significant rash, except past surgical scars Neuro: Normal speech, sensorimotor deficits none Psych/Mental Status: Mental status NL, Mood NL Nurse was there as barbarane during examination laboratory and microbiology Laboratory Tests 05/25/24 06:03 Test 05/25/24 06:03 Range/Units Serum Glucose 194 #H 74-106 mg/dL Labs and/or images reviewed: Labs reviewed by me, Image(s) reviewed by me Problem List/Assessment/Plan Problem List/Assessment/Plan # ? Orthostatic syncope - monitor on telemetry unit - check orthostatic vitals - hold blood pressure medications if needed - given fluids # MONICO likely VM on CKD - currently on IVF - Monitor lab # uncontrolled type 2 DM -Monitor continuously - currently on 20 units Lantus and regular insulin 7 units t.i.d. # HLD - resume home meds SCD for now No GI be PPX Cardiac diet Reconciled home meds Goals of care discussed with the patient for more than 27 minutes: Full code status Case management discussed with Dr. Peng, patient and nurse Plan discussed with: Patient My Orders My Orders Orders - JONNATHAN PLASCENCIA RESIDENT Procedure Category Date Status Time Insulin R (Human) PHA 05/25/24 Logged (Insulin R) 14:45 Insulin Lantus PHA 05/25/24 Logged (Glargine) (Lantus) 22:00 Allopurinol Tablet PHA 05/26/24 Logged (Zyloprim Tablet) 10:00 (Nf) Aspirin (Aspirin PHA 05/26/24 Logged 81 Low Dose) 10:00 (Nf) Sodium Zirconium PHA 05/25/24 Logged Cyclosilicate ([place] 22:00 (Nf) Hydralazine Hcl PHA 05/25/24 Logged 15:00 Orthostatic Vital ORDERS 05/25/24 Transmitted Signs 14:51 Pt Request For Service PT 05/25/24 Logged 14:53 Docusate Sodium PHA 05/25/24 Logged Capsule (Colace 15:00 B-Type Natriuretic LAB 05/25/24 Transmitted Peptide 14:57 Hemoglobin A1c LAB 05/25/24 Transmitted 14:57 Drug Screen LAB 05/25/24 Transmitted 14:57 Vitamin D, 25-Hydroxy LAB 05/25/24 Transmitted 14:57 Vitamin B12 LAB 05/25/24 Transmitted 14:57 Thyroid Stimulating LAB 05/25/24 Transmitted Hormone 14:57 PTPTT LAB 05/25/24 Transmitted 14:57 Date of Service: May 25, 2024 Billing Provider: AMINATA PENG MD Common Visit Codes: [id number] INP/OBS CARE(HIGH) JONNATHAN PLASCENCIA RESIDENT May 25, 2024 14:59 AMINATA PENG MD May 25, 2024 21:36
--- NOTE | 2024-05-25 15:01 | DVHINCON2 ---
Date of service: May 25, 2024 Referring Physician Varinder Cheng NP Reason for Consultation CKD History of Present Illness Mr. Fernandes a 74-year-old male with known history of stage IV chronic kidney disease, hypertension, diabetes, intermittent hyperkalemia who presents for further evaluation and management of generalized weakness. He is seen in his room laying in bed comfortably, he is arousable but history that is able to be elicited is limited due to language barrier. Serum creatinine is in the 3 range during current admission. He is in no acute distress currently. Past Medical History chronic kidney disease stage IV Diabetes Hypertension BPH Dyslipidemia Allergies: Coded Allergies: NO KNOWN ALLERGIES (Unverified , 05/25/24) Home Meds Reported Medications Brimonidine Tartrate (Brimonidine Tartrate) 0.15 % Lis, 1 DROP OP BID, DROP 05/25/24 Insulin Glargine (Basaglar Kwikpen) 100 Unit/Ml Inj, 25 UNIT SC QAM 05/25/24 Insulin Regular (Human) (Novolin R) 100 Unit/Ml Inj 05/25/24 Sodium Zirconium Cyclosilicate (Lokelma) 10 Gm Freddie, 10 GM PO TID, PACK 05/25/24 Aspirin (Aspirin 81 Low Dose) 81 Mg Chw, 81 MG PO DAILY, TAB.CHEW 05/25/24 Memantine Hydrochloride (Memantine HCl) 10 Mg Tab, 10 MG PO DAILY, TAB 05/25/24 Netarsudil Dimesylate (Rhopressa) 0.02 % Lis, 1 DROP EACHEYE 05/25/24 Tamsulosin Hcl (Tamsulosin Hcl) 0.4 Mg Cap, 1 PO DAILY 05/25/24 Allopurinol (Allopurinol) 100 Mg Tab, 1 TAB PO DAILY 05/25/24 Hydralazine Hcl (Hydralazine Hcl) 50 Mg Tab, 1 TAB PO Q8H 05/25/24 Gemfibrozil (Gemfibrozil) 600 Mg Tab, 1 TAB PO BID 05/25/24 Current Medications Current Medications Medications (Trade) Dose Ordered Sig/Flor Route PRN Reason Start Time Stop Time Status Last Admin Aspirin 81 mg DAILY PO 05/25/24 10:00 05/25/24 09:50 Atorvastatin Calcium (Lipitor) 10 mg HS PO 05/25/24 22:00 Tamsulosin HCl (Flomax) 0.4 mg QPM PO 05/25/24 18:00 Hydralazine HCl (Apresoline Injection) 10 mg Q6HP PRN IV SBP>150 05/24/24 23:15 05/25/24 14:50 DC Diagnostic Test (Pha) (Accu-Chek Comfort Curve T) 1 strip ACHS 05/25/24 07:00 05/25/24 12:14 Insulin Human Regular (InsuLIN R) HS SC 05/25/24 22:00 Insulin Human Regular (InsuLIN R) AC SC 05/25/24 07:00 05/25/24 11:30 Dextrose 50 ml UD PRN IV Blood Sugar LESS THAN 60 05/24/24 23:15 Sodium Chloride 1,000 ml @ 60 mls/hr [id number] IV 05/24/24 23:15 05/25/24 02:18 Acetaminophen/ Hydrocodone Bitart ([place] 5/325MG Tab) 1 tab Q4HP PRN PO MODERATE PAIN (4-6 PAIN SCALE) 05/24/24 23:15 Ondansetron HCl (Zofran) 4 mg Q4HP PRN IV NAUSEA / VOMITING 05/24/24 23:15 Docusate Sodium (Colace Capsule) 100 mg BIDPRN PRN PO FOR CONSTIPATION 05/24/24 23:15 Acetaminophen (Tylenol Tablet) 650 mg Q6HP PRN PO PAIN SCALE 1-3 OR TEMP>100.4 05/24/24 23:15 Nitroglycerin (Ntrostat Sublingual) 0.4 mg Q5MINP PRN SL FOR CHEST PAIN 05/24/24 23:45 Morphine Sulfate 2 mg Q30M PRN IV FOR CHEST PAIN 05/24/24 23:45 Insulin Human Regular (InsuLIN R) 7 units TID SC 05/25/24 14:45 UNV Insulin Glargine (Lantus) 20 units QAM SC 05/25/24 22:00 UNV Allopurinol (Zyloprim Tablet) 100 mg DAILY PO 05/26/24 10:00 UNV Patient Own Medication 81 mg DAILY PO 05/26/24 10:00 UNV Patient Own Medication 10 gm TID PO 05/25/24 22:00 UNV Patient Own Medication 1 tab Q8H PO 05/25/24 15:00 UNV Family History: Patient reports no known family medical history. Review of Systems limited due to language barrier. H&P Exam Vital Signs/I&O Vital Sign Date Time Temp Pulse Resp B/P (MAP) Pulse Ox O2 Delivery O2 Flow Rate FiO2 05/25/24 13:00 97.5 94 14 134/59 (84) 95 97.5 05/25/24 08:00 Room Air* 0 21 Intake and Output 05/24/24 05/25/24 19:00 07:00 Intake Total 1000 ml Balance 1000 ml Intake IV Total 1000 ml Physical Exam gen: No acute distress, appears stated age heent: nc lungs: clear to auscultation bilaterally cvs: no rub abd: soft, nontender ext: no edema skin: no rash neuro: arousable Labs/Diagnostic Data Labs/Diagnostic Data Laboratory Tests Test 05/25/24 11:53 05/25/24 06:03 05/25/24 06:01 05/24/24 21:31 Range/Units POC Glucose 294 H 216 H 70-106 mg/dl White Blood Count 6.9 4.4-10.8 10^3/uL Red Blood Count 4.31 L 4.5-5.90 10^6/uL Hemoglobin 13.3 L 13.5-17.5 g/dL Hematocrit 39.2 L 41.0-53.0 % Mean Corpuscular Volume 90.9 80.0-100.0 fL Mean Corpuscular Hemoglobin 30.9 28.0-32.0 pg Mean Corpuscular Hemoglobin Concent 34.0 32.0-36.0 g/dL Red Cell Distribution Width 13.6 11.8-14.3 % Platelet Count 202 140-450 10^3/uL Mean Platelet Volume 9.1 6.9-10.8 fL Neutrophils (%) (Auto) 61.7 37.0-80.0 % Lymphocytes (%) (Auto) 26.9 10.0-50.0 % Monocytes (%) (Auto) 6.4 0.0-12.0 % Eosinophils (%) (Auto) 4.7 0.0-7.0 % Basophils (%) (Auto) 0.3 0.0-2.0 % Neutrophils # (Auto) 4.3 1.6-8.6 10 ^3/uL Lymphocytes # (Auto) 1.9 0.4-5.4 10 ^3/uL Monocytes # (Auto) 0.4 0-1.3 10 ^3/uL Eosinophils # (Auto) 0.3 0-0.8 10 ^3/uL Basophils # (Auto) 0 0-0.2 10 ^3/uL Nucleated Red Blood Cells 0.0 % Sodium Level 140 136-145 mmol/L Potassium Level 4.7 3.5-5.1 mmol/L Chloride Level 107 98-107 mmol/L Carbon Dioxide Level 20 20-31 mmol/L Anion Gap 13 5-15 Blood Urea Nitrogen 37 H 9-23 mg/dL Creatinine 3.42 H 0.700-1.30 mg/dL Glomerular Filtration Rate Calc 18 >90 mL/min BUN/Creatinine Ratio 10.8 10.0-20.0 Serum Glucose 194 #H 74-106 mg/dL Calcium Level 9.5 8.7-10.4 mg/dL Total Bilirubin 0.5 0.2-1.0 mg/dL Aspartate Amino Transferase (AST) 24 13-40 U/L Alanine Aminotransferase (ALT) 27 7-40 U/L Alkaline Phosphatase 98 46-116 U/L Total Protein 7.6 5.7-8.2 g/dL Albumin 4.6 3.2-4.8 g/dL Troponin I High Sensitivity 4 </=54 ng/L Test 05/24/24 19:35 05/24/24 19:24 05/24/24 18:24 Range/Units Urine Color Colorless Yellow Urine Clarity Clear Clear Urine pH 5.0 5.0-9.0 Urine Specific [place] 1.008 1.001-1.035 Urine Protein 1+ H Negative Urine Ketones Negative Negative Urine Blood Negative Negative /uL Urine Nitrite Negative Negative Urine Bilirubin Negative Negative Urine Urobilinogen Normal Negative mg/dL Urine Leukocyte Esterase 1+ Negative /uL Urine RBC 1 0 - 3 /hpf Urine WBC 3 0 - 3 /hpf Urine Squamous Epithelial Cells None seen <5 /hpf Urine Bacteria None seen None Seen /hpf Urine Hyaline Casts Few 0 - 2 /lpf Urine Glucose 3+ H Normal mg/dL Troponin I High Sensitivity 4 5 </=54 ng/L White Blood Count 6.7 4.4-10.8 10^3/uL Red Blood Count 4.59 4.5-5.90 10^6/uL Hemoglobin 14.0 13.5-17.5 g/dL Hematocrit 41.7 41.0-53.0 % Mean Corpuscular Volume 90.8 80.0-100.0 fL Mean Corpuscular Hemoglobin 30.5 28.0-32.0 pg Mean Corpuscular Hemoglobin Concent 33.6 32.0-36.0 g/dL Red Cell Distribution Width 13.7 11.8-14.3 % Platelet Count 190 140-450 10^3/uL Mean Platelet Volume 8.8 6.9-10.8 fL Neutrophils (%) (Auto) 63.7 37.0-80.0 % Lymphocytes (%) (Auto) 24.5 10.0-50.0 % Monocytes (%) (Auto) 7.9 0.0-12.0 % Eosinophils (%) (Auto) 3.7 0.0-7.0 % Basophils (%) (Auto) 0.2 0.0-2.0 % Neutrophils # (Auto) 4.3 1.6-8.6 10 ^3/uL Lymphocytes # (Auto) 1.6 0.4-5.4 10 ^3/uL Monocytes # (Auto) 0.5 0-1.3 10 ^3/uL Eosinophils # (Auto) 0.2 0-0.8 10 ^3/uL Basophils # (Auto) 0 0-0.2 10 ^3/uL Nucleated Red Blood Cells 0.0 % Sodium Level 136 136-145 mmol/L Potassium Level 4.8 3.5-5.1 mmol/L Chloride Level 105 98-107 mmol/L Carbon Dioxide Level 18 L 20-31 mmol/L Anion Gap 13 5-15 Blood Urea Nitrogen 42 H 9-23 mg/dL Creatinine 3.45 H 0.700-1.30 mg/dL Glomerular Filtration Rate Calc 18 >90 mL/min BUN/Creatinine Ratio 12.2 10.0-20.0 Serum Glucose 310 H 74-106 mg/dL Calcium Level 9.6 8.7-10.4 mg/dL Total Bilirubin 0.4 0.2-1.0 mg/dL Aspartate Amino Transferase (AST) 35 13-40 U/L Alanine Aminotransferase (ALT) 33 7-40 U/L Alkaline Phosphatase 104 46-116 U/L Total Protein 7.6 5.7-8.2 g/dL Albumin 4.8 3.2-4.8 g/dL Assessment IMP: 1) Hemodynamically needed acute kidney injury and vasomotor nephropathy/ ? Mild volume depleted state 2) CKD IV - baseline GFR in the low 20 range 3) HTN 4) DM II 5) Hyperkalemia - on Lokelma tx chronically 6) Hyperuricemia REC: - agree with current plan of care - judicious IVF X 1 liter and will reassess - We will follow up in clinic 2 weeks after discharge. Thank you for the consultation. Plan discussed with: Patient, Other SANTI CRUZ MD May 25, 2024 15:01
[2024-05-25] MEDS: DOCUSATE SOD 100 MG CAP PO SCH (15:35)
[2024-05-25] MEDS: hydrALAZINE HCL 25 MG TAB PO SCH (16:07)
[2024-05-25 17:41] LABS: INR 1.04 (0.9-1.15); Partial Thromboplastin Time 25.9 SEC (24.5-34.5)
[2024-05-25] MEDS: TAMSULOSIN HYDROCHLORIDE 0.4 MG CAP PO SCH (18:19)
[2024-05-25] MEDS: ATORVASTATIN 20 MG TAB PO SCH (21:48)
[2024-05-25] MEDS: SODIUM ZIRCONIUM CYCL 10 GM PAK PO SCH (21:48)
[2024-05-25] MEDS: INSULIN LANTUS (GLARGINE) 1 /0.01ml (100units/ml) SC SCH (22:00)
[2024-05-26] VITALS (8 sets, daily range): BP systolic 138–175; BP diastolic 56–86; PULSE 92–118; RESP 17–19; TEMP 97.4–98.3; O2SAT 94–98
[2024-05-26 05:32] LABS: Basophils # (auto) 0 10 ^3/uL (0-0.2); Basophils % (auto) 0.1 % (0.0-2.0); Eosinophils # (auto) 0.3 10 ^3/uL (0-0.8); Eosinophils % (auto) 2.4 % (0.0-7.0); Hematocrit 38.5 % (41.0-53.0); Hemoglobin 13.1 g/dL (13.5-17.5); Lymphocytes # (auto) 1.2 10 ^3/uL (0.4-5.4); Lymphocytes % (auto) 10.5 % (10.0-50.0); Mean Corpuscular Hemoglobin 30.9 pg (28.0-32.0); Monocytes # (auto) 0.6 10 ^3/uL (0-1.3); Platelet Count (auto) 177 10^3/uL (140-450); Red Blood Cells 4.23 10^6/uL (4.5-5.90); Red Cell Distribution Width 13.7 % (11.8-14.3)
[2024-05-26 06:38] LABS: Chloride 108 mmol/L (98-107); Potassium 4.5 mmol/L (3.5-5.1); Sodium 141 mmol/L (136-145)
[2024-05-26 06:39] LABS: Anion Gap 12 (5-15); Carbon Dioxide 21 mmol/L (20-31)
[2024-05-26 06:40] LABS: Calcium 9.9 mg/dL (8.7-10.4)
[2024-05-26 06:44] LABS: Blood Urea Nitrogen 31 mg/dL (9-23); Glucose 183 mg/dL (74-106)
[2024-05-26] MEDS ORDERED: ASPIRIN 81 MG PO SCH (10:00)
[2024-05-26] MEDS: ALLOPURINOL 100 MG TAB PO SCH (11:13)
[2024-05-26] MEDS: HYDROcodone-ACET 5/325MG TAB PO PRN (11:14)
--- NOTE | 2024-05-26 11:58 | DVHPN2 ---
Progress Note Date Seen: May 26, 2024 Medical Necessity Reason Pt with a Central, PICC or Fol: No Subjective Other Systems: Patient seen and examined by myself today in follow-up Objective vital signs Vital Sign Date Time Temp Pulse Resp B/P (MAP) Pulse Ox O2 Delivery O2 Flow Rate FiO2 05/26/24 11:13 148/80 05/26/24 09:00 97.8 118 17 96 97.8 05/26/24 08:00 Room Air* 0 21 Total Intake and Output 05/25/24 05/25/24 05/26/24 15:00 23:00 07:00 Intake Total 420 ml 180 ml Output Total 375 ml 400 ml Balance 45 ml -220 ml medications Current Medications Medications Dose Ordered Sig/Flor Route Start Time Stop Time Status Last Admin Dose Admin Aspirin 81 mg DAILY PO 05/25/24 10:00 05/26/24 11:12 81 MG Atorvastatin Calcium 10 mg HS PO 05/25/24 22:00 05/25/24 21:48 10 MG Tamsulosin HCl 0.4 mg QPM PO 05/25/24 18:00 05/25/24 18:19 0.4 MG Diagnostic Test (Pha) 1 strip ACHS 05/25/24 07:00 05/26/24 11:35 1 STRIP Insulin Human Regular HS SC 05/25/24 22:00 05/25/24 21:45 4 UNITS Insulin Human Regular AC SC 05/25/24 07:00 05/26/24 11:48 12 UNITS Dextrose 50 ml UD PRN IV 05/24/24 23:15 Sodium Chloride 1,000 ml @ 60 mls/hr [id number] IV 05/24/24 23:15 05/26/24 11:15 60 MLS/HR Acetaminophen/ Hydrocodone Bitart 1 tab Q4HP PRN PO 05/24/24 23:15 05/26/24 11:14 1 TAB Ondansetron HCl 4 mg Q4HP PRN IV 05/24/24 23:15 Acetaminophen 650 mg Q6HP PRN PO 05/24/24 23:15 Nitroglycerin 0.4 mg Q5MINP PRN SL 05/24/24 23:45 Morphine Sulfate 2 mg Q30M PRN IV 05/24/24 23:45 Insulin Glargine 20 units QAM SC 05/25/24 22:00 05/26/24 05:54 20 UNITS Allopurinol 100 mg DAILY PO 05/26/24 10:00 05/26/24 11:13 100 MG Zirconium Oxide 10 gm TID PO 05/25/24 22:00 05/26/24 05:56 10 GM Hydralazine HCl 50 mg Q8H PO 05/25/24 15:30 05/26/24 11:13 50 MG Docusate Sodium 100 mg BID PO 05/25/24 15:00 05/26/24 11:11 100 MG Insulin Human Regular 7 units TID SC 05/25/24 15:30 Examination: LUNGS:Normal, CVS:Normal, MSK:Normal laboratory and microbiology Laboratory Tests 05/26/24 04:33 Test 05/26/24 04:33 Range/Units Serum Glucose 183 H 74-106 mg/dL Problem List/Assessment/Plan Problem List/Assessment/Plan Acute kidney injury superimposed Chronic Kidney Disease secondary hemodynamic mediated Diabetes mellitus type 2 Hypertension Hyperkalemia due to dietary indiscretion Hyperglycemia Recommendations Kidney function slightly improving Increased urine output Hyperkalemia resolved Renal diet Insulin sliding scale Blood pressure control Check kidney ultrasound Check urine protein excretion We will continue to follow up Plan discussed with: Patient My Orders My Orders Orders - WALDO ENAMORADO MD Procedure Category Date Status Time Kidney US 05/26/24 Transmitted 11:54 Vitamin D, 25-Hydroxy LAB 05/26/24 Transmitted 11:54 Urine Sodium LAB 05/26/24 Transmitted 11:54 Urine LAB 05/26/24 Transmitted Protein/Creatinine Urine Creatinine LAB 05/26/24 Transmitted 11:54 Phosphorus LAB 05/26/24 Transmitted 11:54 Parathyroid Hormone LAB 05/26/24 Transmitted Intact 11:54 Magnesium LAB 05/26/24 Transmitted 11:54 WALDO ENAMORADO MD May 26, 2024 11:58
[2024-05-26 12:15] LABS: Magnesium 2.3 mg/dL (1.6-2.6)
--- NOTE | 2024-05-26 13:10 | DVH ---
INDICATION: lakesha TECHNIQUE: Multiple real-time sonographic images of the kidneys and bladder were obtained. COMPARISON: None FINDINGS: RIGHT kidney measures 9.1 cm in length. Increased echogenicity. No stones or focal lesions are iden tified. No hydronephrosis. LEFT kidney measures 9.9 cm in length. Increased echogenicity. Left renal simple appearing cysts me asuring up to. No hydronephrosis. No large intraluminal masses are seen in the bladder. Prevoid urinary bladder volume 305 cc. Prostate volume 23 cc. IMPRESSION: 1. No hydronephrosis bilaterally. 2. Nonspecific increased echogenicity of the bilateral kidneys, most commonly seen in the setting of chronic kidney disease. 3. Left renal simple appearing cysts measuring up to 1.3 cm. HS:Y
--- NOTE | 2024-05-26 14:23 | ECG ---
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
[2024-05-26] MEDS: SODIUM CHLORIDE 0.9% 1,000 ML IV ONE (15:01)
--- NOTE | 2024-05-26 15:22 | DVHPNRES ---
Progress Note Date Seen: May 26, 2024 Resident Creating Document: JONNATHAN PLASCENCIA RESIDENT Medical Necessity Reason Pt with a Central, PICC or Fol: No Subjective Review of Systems Gabriel Fernandes is a 74 years old sami language speaking male with a PMH of HTN, dm, CKD presented to the ED with the chief complaints of weakness and syncope since day prior to admission. Patient seen and examined at the bedside. Patient reported mild improvement in his symptoms since admission. Patient is currently alert, oriented x3 and able to answer all questions. Currently on cardiac diet. continuously monitor blood glucose. Renal ultrasound showed findings suggestive of CKD and simple appearing left renal cyst. nephrology senior financial consultant evaluated the patient, advised further urinary studies and a renal diet. Patient reports: No new complaints Objective vital signs Vital Sign Date Time Temp Pulse Resp B/P (MAP) Pulse Ox O2 Delivery O2 Flow Rate FiO2 05/26/24 15:01 142/63 05/26/24 13:00 98.1 105 18 97 98.1 05/26/24 08:00 Room Air* 0 21 Total Intake and Output 05/25/24 05/25/24 05/26/24 14:59 22:59 06:59 Intake Total 420 ml 180 ml Output Total 375 ml 400 ml Balance 45 ml -220 ml medications Current Medications Medications Dose Ordered Sig/Flor Route Start Time Stop Time Status Last Admin Dose Admin Aspirin 81 mg DAILY PO 05/25/24 10:00 05/26/24 11:12 81 MG Atorvastatin Calcium 10 mg HS PO 05/25/24 22:00 05/25/24 21:48 10 MG Tamsulosin HCl 0.4 mg QPM PO 05/25/24 18:00 05/25/24 18:19 0.4 MG Diagnostic Test (Pha) 1 strip ACHS 05/25/24 07:00 05/26/24 11:35 1 STRIP Insulin Human Regular HS SC 05/25/24 22:00 05/25/24 21:45 4 UNITS Insulin Human Regular AC SC 05/25/24 07:00 05/26/24 11:48 12 UNITS Dextrose 50 ml UD PRN IV 05/24/24 23:15 Sodium Chloride 1,000 ml @ 60 mls/hr [id number] IV 05/24/24 23:15 05/26/24 11:15 60 MLS/HR Acetaminophen/ Hydrocodone Bitart 1 tab Q4HP PRN PO 05/24/24 23:15 05/26/24 11:14 1 TAB Ondansetron HCl 4 mg Q4HP PRN IV 05/24/24 23:15 Acetaminophen 650 mg Q6HP PRN PO 05/24/24 23:15 Nitroglycerin 0.4 mg Q5MINP PRN SL 05/24/24 23:45 Morphine Sulfate 2 mg Q30M PRN IV 05/24/24 23:45 Insulin Glargine 20 units QAM SC 05/25/24 22:00 05/26/24 05:54 20 UNITS Allopurinol 100 mg DAILY PO 05/26/24 10:00 05/26/24 11:13 100 MG Zirconium Oxide 10 gm TID PO 05/25/24 22:00 05/26/24 15:01 10 GM Hydralazine HCl 50 mg Q8H PO 05/25/24 15:30 05/26/24 15:01 50 MG Docusate Sodium 100 mg BID PO 05/25/24 15:00 05/26/24 11:11 100 MG Insulin Human Regular 7 units TID SC 05/25/24 15:30 Examination Pt is lying on bed General Appearance: Alert, Oriented X3, Cooperative, Not in acute distress HEENT: Atraumatic, Mucous membranes moist/pink Respiratory: Clear to auscultation, Normal air movement, No added sounds Cardiovascular: Regular rate, Normal S1, Normal S2, No murmurs Abdominal: Active bowel sounds, Soft, no distention, no tenderness Extremities: No edema, Normal pulses, No tenderness/swelling Skin: No Significant rash, except past surgical scars Neuro: Normal speech, sensorimotor deficits none Psych/Mental Status: Mental status NL, Mood NL Nurse was there as sharpfoziane during examination laboratory and microbiology Laboratory Tests 05/26/24 04:33 Test 05/26/24 04:33 Range/Units Serum Glucose 183 H 74-106 mg/dL Labs and/or images reviewed: Labs reviewed by me, Image(s) reviewed by me Problem List/Assessment/Plan Problem List/Assessment/Plan # ? Orthostatic syncope # Dehydration - monitor on telemetry unit - check orthostatic vitals - hold blood pressure medications if needed - given fluids # MONICO likely VM on CKD-improving - currently on IVF - Monitor lab - Renal ultrasound showed findings suggestive of CKD and simple appearing left renal cyst. - Nephrology senior financial consultant evaluated the patient, advised further urinary studies and a renal diet. # uncontrolled type 2 DM -Monitor continuously and ISS - currently on 20 units Lantus and regular insulin 7 units t.i.d. # HLD - resume home meds SCD for now No GI be PPX Cardiac diet Reconciled home meds Goals of care discussed with the patient for more than 27 minutes: Full code status Case management discussed with Dr. Peng, patient and nurse Plan discussed with: Patient My Orders My Orders Orders - JONNATHAN PLASCENCIA Procedure Category Date Status Time Insulin R (Human) PHA 05/25/24 In Process (Insulin R) 15:30 Parathyroid Hormone LAB 05/26/24 In Process Intact 11:57 T3 Total LAB 05/26/24 Verified 15:20 Free T4 (Free LAB 05/26/24 Verified Thyroxine) 15:20 Date of Service: May 26, 2024 Billing Provider: AMINATA PENG MD Common Visit Codes: [id number] INP/OBS CARE(HIGH) JONNATHAN PLASCENCIA May 26, 2024 15:22 AMINATA PENG MD May 26, 2024 19:57
[2024-05-26] MEDS: ATORVASTATIN 20 MG TAB PO SCH (22:11)
[2024-05-27] VITALS (7 sets, daily range): BP systolic 134–159; BP diastolic 53–74; PULSE 95–114; RESP 16–19; TEMP 97.8–98.5; O2SAT 95–98
[2024-05-27 08:11] LABS: Chloride 110 mmol/L (98-107); Potassium 3.9 mmol/L (3.5-5.1); Sodium 141 mmol/L (136-145)
[2024-05-27 08:12] LABS: Anion Gap 9 (5-15); Carbon Dioxide 22 mmol/L (20-31)
[2024-05-27 08:13] LABS: Basophils # (auto) 0 10 ^3/uL (0-0.2); Basophils % (auto) 0.1 % (0.0-2.0); Calcium 9.6 mg/dL (8.7-10.4); Eosinophils # (auto) 0.2 10 ^3/uL (0-0.8); Eosinophils % (auto) 2.7 % (0.0-7.0); Hematocrit 38.2 % (41.0-53.0); Lymphocytes # (auto) 1.3 10 ^3/uL (0.4-5.4); Lymphocytes % (auto) 13.4 % (10.0-50.0); Mean Corpuscular Hemoglobin 30.5 pg (28.0-32.0); Mean Corpuscular Hgb Conc. 33.9 g/dL (32.0-36.0); Mean Corpuscular Volume 89.9 fL (80.0-100.0); Monocytes # (auto) 0.5 10 ^3/uL (0-1.3); Monocytes % (auto) 5.3 % (0.0-12.0); Neutrophils # (auto) 7.4 10 ^3/uL (1.6-8.6); Neutrophils % (auto) 78.5 % (37.0-80.0); Nucleated Red Blood Cells % 0.1 %; Platelet Count (auto) 174 10^3/uL (140-450); Red Blood Cells 4.25 10^6/uL (4.5-5.90); Red Cell Distribution Width 13.3 % (11.8-14.3); White Blood Cell 9.4 10^3/uL (4.4-10.8)
[2024-05-27 08:17] LABS: Glucose 163 mg/dL (74-106)
[2024-05-27 08:18] LABS: BUN/Creatinine Ratio 10.7 (10.0-20.0); Blood Urea Nitrogen 23 mg/dL (9-23)
--- NOTE | 2024-05-27 10:05 | DVH ---
CLINICAL INFORMATION: 74 years old, Male; knee pain left. TECHNIQUE: 3 views of the left knee were obtained. COMPARISON: None FINDINGS: No acute fracture or dislocation. [id number] joint space narrowing in all 3 compartme nts. Mild spurring of the superior and inferior poles of the patella. No focal soft tissue swelling. Small joint effusion. Moderate arterial calcification noted. IMPRESSION: 1. No evidence of acute bony abnormality. 2. Nonacute findings as detailed above.
[2024-05-27] MEDS: SODIUM CHLORIDE 0.9% 1,000 ML IV SCH (11:55)
--- NOTE | 2024-05-27 12:18 | ECG ---
[facility] Test Date: 2024-05-24 Test Time: 18:00:00 Pat Name: JASON LIND Department: ER Room: [facility]0T B Gender: M Bill Hiker: BERNADETTE : 1950 Requested By: ESTRELLA DAVIS Order Number: [id number] Reading MD: Martin Ward Measurements Intervals [place] Rate: 98 P: 46 [place]: 198 QRS: 23 QRSD: 72 T: 51 QT: 340 QTc: 435 Interpretive Statements Sinus rhythm Electronically Signed On 05-28-2024 14:13:10 PST by Martin Ward Please click the below link to view image of tracing.
[2024-05-27 12:29] LABS: Free T4 (Free Thyroxine) 1.12 ng/dL (0.89-1.76); T3 Total 0.65 ng/mL (0.60-1.81)
--- NOTE | 2024-05-27 12:29 | DVH ---
CLINICAL INDICATION: 74 years old, Male; stroke. COMPARISON: CT HEAD WITHOUT CONTRAST on DOS: 05/24/24 TECHNIQUE: Multisequence multiplanar MRI images of the brain were obtained without contrast. FINDINGS: Ovoid area of restricted diffusion in the left thalamus measuring up to 1.4 cm in greates t dimension, most likely acute or subacute infarct. No midline shift. Ventricles and sulci are within normal limits. Basal cisterns are patent. Cerebellum, brainstem, and midline structures are within n ormal limits. Paranasal sinuses are clear. Orbits are grossly unremarkable. IMPRESSION: Ovoid focal area of restricted diffusion in the left thalamus, most consistent with an acute or subac omer infarct. Neoplasm would be less likely but not excluded in the appropriate clinical setting. The re does not appear to be mass effect associated with this area of restricted diffusion. If there is clinical concern for mass, postcontrast imaging could be obtained.
[2024-05-27] MEDS: SODIUM CHLORIDE 0.9% 1,000 ML IV ONE ×2 (12:37→18:11)
--- NOTE | 2024-05-27 13:08 | DVHPN2 ---
Progress Note Date Seen: May 27, 2024 Medical Necessity Reason Pt with a Central, PICC or Fol: No Subjective Patient reports: No new complaints Other Systems: Patient seen and examined by myself today in follow-up Objective vital signs Vital Sign Date Time Temp Pulse Resp B/P (MAP) Pulse Ox O2 Delivery O2 Flow Rate FiO2 05/27/24 09:00 97.9 100 17 139/68 (91) 98 97.9 05/27/24 08:00 Room Air* 0 21 Total Intake and Output 05/26/24 05/26/24 05/27/24 15:00 23:00 07:00 Intake Total 1200 ml 150 ml Output Total 500 ml Balance 1200 ml -350 ml medications Current Medications Medications Dose Ordered Sig/Flor Route Start Time Stop Time Status Last Admin Dose Admin Aspirin 81 mg DAILY PO 05/25/24 10:00 05/27/24 08:42 81 MG Tamsulosin HCl 0.4 mg QPM PO 05/25/24 18:00 05/26/24 18:30 0.4 MG Diagnostic Test (Pha) 1 strip ACHS 05/25/24 07:00 05/27/24 11:40 1 STRIP Insulin Human Regular HS SC 05/25/24 22:00 05/26/24 22:16 4 UNITS Insulin Human Regular AC SC 05/25/24 07:00 05/27/24 11:41 6 UNITS Dextrose 50 ml UD PRN IV 05/24/24 23:15 Acetaminophen/ Hydrocodone Bitart 1 tab Q4HP PRN PO 05/24/24 23:15 05/27/24 08:41 1 TAB Ondansetron HCl 4 mg Q4HP PRN IV 05/24/24 23:15 Acetaminophen 650 mg Q6HP PRN PO 05/24/24 23:15 Nitroglycerin 0.4 mg Q5MINP PRN SL 05/24/24 23:45 Morphine Sulfate 2 mg Q30M PRN IV 05/24/24 23:45 Insulin Glargine 20 units QAM SC 05/25/24 22:00 05/27/24 05:45 20 UNITS Allopurinol 100 mg DAILY PO 05/26/24 10:00 05/27/24 08:41 100 MG Zirconium Oxide 10 gm TID PO 05/25/24 22:00 05/27/24 05:47 10 GM Hydralazine HCl 50 mg Q8H PO 05/25/24 15:30 05/27/24 08:40 50 MG Docusate Sodium 100 mg BID PO 05/25/24 15:00 05/27/24 08:40 100 MG Insulin Human Regular 7 units TID SC 05/25/24 15:30 Atorvastatin Calcium 80 mg HS PO 05/26/24 22:00 05/26/24 22:11 80 MG Sodium Chloride 1,000 ml @ 85 mls/hr [id number] IV 05/27/24 10:00 05/27/24 11:55 85 MLS/HR Examination: LUNGS:Normal, CVS:Normal, MSK:Normal laboratory and microbiology Laboratory Tests 05/27/24 07:40 Test 05/27/24 07:40 Range/Units Serum Glucose 163 H 74-106 mg/dL Problem List/Assessment/Plan Problem List/Assessment/Plan Acute kidney injury superimposed Chronic Kidney Disease secondary hemodynamic mediated Diabetes mellitus type 2 Hypertension Hyperkalemia due to dietary indiscretion Hyperglycemia Recommendations Kidney function continues to improve Increased urine output Hyperkalemia resolved Renal diet Insulin sliding scale Blood pressure control kidney ultrasound reported bilateral echogenic kidney Check urine protein excretion We will continue to follow up Plan discussed with: Patient WALDO ENAMORADO MD May 27, 2024 13:08
--- NOTE | 2024-05-27 14:07 | DVHSR ---
APPROVED REPORT EXAM: Two-dimensional and M-mode echocardiogram with Doppler, color Doppler and Bubble Study. Blood Pressure: 139/68 mmHg INDICATION Bubble study RISK FACTORS Height: 5'8", Weight: 182 DIMENSIONS LVDd3.6 (3.8-5.7cm)LA (2D)4.0 (1.9-4.0cm)Aortic Root4.0 (2.0-3.7cm) LVDs2.5 (2.5-4.0cm)LA (MM) (1.9-4.0cm)Aortic Cusp Exc1.7 (1.5-2.0cm) EF (%) 55.0 (55-70%)Rt. Atrium4.0 (1.9-4.0cm)Asc. Aorta cm IVSd1.3 (0.7-1.1cm)RV (D) (1.8-2.4cm) PWd1.2 (0.7-1.1cm) Mitral Valve MitralMitral Stenosis E/A ratio0.02D MVAcm2 Aortic Valve Aortic ValveAortic Stenosis V10.95m/Edyta Mean GR.4mmHg V21.23m/Edyta Peak GR.6mmHg LVOT Diameter2.1 (1.8-2.4cm)Doppler AVA2.67cm2 Pulmonic Valve V20.93m/s Tricuspid Valve TR Velocity3.49m/s [id number] ATRIA Injection of bubbles documented an interatrial shunt. Other Information Technically limited study due to body habitus. Conclusion Normal left ventricular size and dimension. Normal left ventricular systolic function estimated ejec tion fraction of 55%. There is a grade 1 diastolic dysfunction. Normal right ventricular size and dimension. Normal right ventricular systolic function. Moderately severely elevated right ventricular systolic pressure at 57 mm of mercury. Normal biatrial size and dimension. Normal aortic valve structure and function. Normal mitral valve structure and function. Normal tricuspid valve structure and function. Pulmonary valve is grossly normal. No pericardial effusion.
[2024-05-27] MEDS: CLOPIDOGREL BISULFATE 75 MG TAB PO ONE (15:22)
[2024-05-27] MEDS: LISINOPRIL 5 MG TAB PO ONE (15:22)
[2024-05-27 16:19] LABS: Protein, Urine 99.7 mg/dL (1-14)
[2024-05-27 16:22] LABS: Amphetamine Screen, Urine Neg (NEGATIVE); Barbiturate Scree,Urine Neg (NEGATIVE); Benzodiazephine Screen, Urine Neg (NEGATIVE); Cannabinoid Screen, Urine Neg (NEGATIVE); Cocaine Screen, Urine Neg (NEGATIVE); Creatinine, Urine 68.42 mg/dL (30.0-125.0); Opiate Scree,Urine Neg (NEGATIVE); Phencyclidine Screen, Urine Neg (NEGATIVE); Urine Protein/Creatinine Ratio 1.46
[2024-05-27] MEDS ORDERED: IOHEXOL 350 MG/ML 100ML IJ ONE (16:32)
--- NOTE | 2024-05-27 16:38 | DVHPNRES ---
Progress Note Date Seen: May 27, 2024 Resident Creating Document: JONNATHAN PLASCENCIA RESIDENT Medical Necessity Reason Pt with a Central, PICC or Fol: No Subjective Review of Systems Gabriel Fernandes is a 74 years old korean language speaking male with a PMH of HTN, dm, CKD presented to the ED with the chief complaints of weakness and syncope since day prior to admission. Patient seen and examined at the bedside. Patient reported mild improvement in his symptoms since admission. Patient is currently alert, oriented x3 and able to answer all questions. Currently on cardiac diet. continuously monitor blood glucose. Renal ultrasound showed findings suggestive of CKD and simple appearing left renal cyst. nephrology virtualization consultant evaluated the patient, advised further urinary studies and a renal diet. Head CT showed findings suggestive of stroke, MRI brain showed Ovoid focal area of restricted diffusion in the left thalamus, most consistent with an acute or subacute infarct, patient is currently on aspirin, Plavix and Lipitor. PendingCT angio head & neck Objective vital signs Vital Sign Date Time Temp Pulse Resp B/P (MAP) Pulse Ox O2 Delivery O2 Flow Rate FiO2 05/27/24 15:22 159/73 05/27/24 13:00 97.9 95 17 97 97.9 05/27/24 08:00 Room Air* 0 21 Total Intake and Output 05/26/24 05/26/24 05/27/24 15:00 23:00 07:00 Intake Total 1200 ml 150 ml Output Total 500 ml Balance 1200 ml -350 ml medications Current Medications Medications Dose Ordered Sig/Flor Route Start Time Stop Time Status Last Admin Dose Admin Aspirin 81 mg DAILY PO 05/25/24 10:00 05/27/24 08:42 81 MG Tamsulosin HCl 0.4 mg QPM PO 05/25/24 18:00 05/26/24 18:30 0.4 MG Diagnostic Test (Pha) 1 strip ACHS 05/25/24 07:00 05/27/24 16:30 1 STRIP Insulin Human Regular HS SC 05/25/24 22:00 05/26/24 22:16 4 UNITS Insulin Human Regular AC SC 05/25/24 07:00 05/27/24 11:41 6 UNITS Dextrose 50 ml UD PRN IV 05/24/24 23:15 Acetaminophen 650 mg Q6HP PRN PO 05/24/24 23:15 Insulin Glargine 20 units QAM SC 05/25/24 22:00 05/27/24 05:45 20 UNITS Allopurinol 100 mg DAILY PO 05/26/24 10:00 05/27/24 08:41 100 MG Zirconium Oxide 10 gm TID PO 05/25/24 22:00 05/27/24 13:31 10 GM Hydralazine HCl 50 mg Q8H PO 05/25/24 15:30 05/27/24 15:22 50 MG Insulin Human Regular 7 units TID SC 05/25/24 15:30 Atorvastatin Calcium 80 mg HS PO 05/26/24 22:00 05/26/24 22:11 80 MG Sodium Chloride 1,000 ml @ 85 mls/hr [id number] IV 05/27/24 10:00 05/27/24 11:55 85 MLS/HR Clopidogrel Bisulfate 75 mg DAILY PO 05/28/24 10:00 Lisinopril 5 mg DAILY PO 05/28/24 10:00 Examination Pt is lying on bed General Appearance: Alert, Oriented X3, Cooperative, Not in acute distress HEENT: Atraumatic, Mucous membranes moist/pink Respiratory: Clear to auscultation, Normal air movement, No added sounds Cardiovascular: Regular rate, Normal S1, Normal S2, No murmurs Abdominal: Active bowel sounds, Soft, no distention, no tenderness Extremities: No edema, Normal pulses, No tenderness/swelling Skin: No Significant rash, except past surgical scars Neuro: Normal speech, sensorimotor deficits none Psych/Mental Status: Mental status NL, Mood NL Nurse was there as sharperone during examination laboratory and microbiology Laboratory Tests 05/27/24 07:40 Test 05/27/24 07:40 Range/Units Serum Glucose 163 H 74-106 mg/dL Labs and/or images reviewed: Labs reviewed by me, Image(s) reviewed by me Problem List/Assessment/Plan Problem List/Assessment/Plan # acute/ subacute ischemic stroke of thalamus - evident on CT and MRI - ordered CT angio neck and head despite of decreased renal function, by weighing risk versus benefit. - currently on aspirin, Lipitor, Plavix - ordered physical therapy # ? Orthostatic syncope # Dehydration - monitor on telemetry unit - check orthostatic vitals - hold blood pressure medications if needed - given fluids # MONICO likely VM on CKD-improving - currently on IVF - Monitor lab - Renal ultrasound showed findings suggestive of CKD and simple appearing left renal cyst. - Nephrology virtualization consultant evaluated the patient, advised further urinary studies and a renal diet. # uncontrolled type 2 DM -Monitor continuously and ISS - currently on 20 units Lantus and regular insulin 7 units t.i.d. # HLD - resume home meds SCD for now No GI be PPX Cardiac diet Reconciled home meds Goals of care discussed with the patient for more than 27 minutes: Full code status Case management discussed with Dr. Peng, patient and nurse Plan discussed with: Patient My Orders My Orders Orders - JONNATHAN PLASCENCIA RESIDENT Procedure Category Date Status Time L Knee 2v Xray XY 05/27/24 Resulted 08:32 Angio Head/Neck CT 05/27/24 Logged 09:35 Brain Head Wo Contrast MRI 05/27/24 Resulted 09:35 Sodium Chloride 0.9% PHA 05/27/24 In Process 10:00 Clopidogrel Bisulfate PHA 05/28/24 In Process (Plavix) 10:00 Lisinopril Tablet PHA 05/28/24 In Process (Zestril Tablet) 10:00 Date of Service: May 27, 2024 Billing Provider: AMINATA PENG MD Common Visit Codes: [id number] INP/OBS CARE(HIGH) JONNATHAN PLASCENCIA May 27, 2024 16:38 AMINATA PENG MD May 28, 2024 08:21
--- NOTE | 2024-05-27 17:17 | DVH ---
INDICATION: stroke COMPARISON: None TECHNIQUE: CTA head with intravenous contrast. CTA neck with intravenous contrast. 3D image postpr ocessing was performed on a dedicated workstation and images were used for interpretation and reporti ng. Radiation Dose Information: CT Dose: CTDI volume is 30 mGy. Dose-length product is 798 mGy*cm CONTRAST: Type of contrast: Omni 350 Contrast injected: 100 ml FINDINGS: CTA head: There is normal enhancement of the visualized distal internal carotid, anterior and middle cerebral a rteries. There is calcified atherosclerotic plaque involving the bilateral cavernous carotid arteries . Suspect a moderate to high-grade stenosis of the left supraclinoid internal carotid artery. There i s a normal anterior communicating artery complex. Left A1 segment is atretic. The vertebral, basila r, cerebellar and posterior cerebral arteries are within normal limits. The early parenchymal enhanc ement is grossly unremarkable. The visualized intracranial venous structures are grossly unremarkabl e. CTA neck: The visualized thoracic aortic arch and proximal great vessels demonstrate calcified atherosclerotic disease. Calcified plaque at the origin of the left subclavian artery likely results in a mild to mod erate approximately 50% stenosis. There is eccentric plaque in the proximal left internal carotid artery resulting in a [id number] e, approximately 50% stenosis. Left common and external carotid arteries are patent without hemodynam ically significant stenosis. The right common, internal and external carotid arteries are patent without hemodynamically significa nt stenosis. There is calcified plaque proximal right internal carotid artery. The cervical segments of the right and left vertebral arteries are within normal limits. There are emphysematous changes in the visualized lung apices. The surrounding soft tissues and osse ous structures are otherwise unremarkable. IMPRESSION: 1. Suspect a mi moderate to high-grade stenosis of the left supraclinoid internal carotid artery. No intracranial occlusion or aneurysm. 2. Mild to moderate, approximately 50% stenosis of the proximal left internal carotid artery. Mild-t o-moderate approximately 50% stenosis of the origin of the left subclavian artery. All CT scans at this medical facility are performed using dose modulation techniques as appropriate t o a performed exam including the following: Automated exposure control was utilized; adjustment of th e MA and/or KV according to patient size; and use of iterative reconstruction technique. HS:Y
[2024-05-27] MEDS: FUROSEMIDE 40 MG/4 ML VIAL IV ONE (18:10)
[2024-05-28] VITALS (7 sets, daily range): BP systolic 121–175; BP diastolic 70–89; PULSE 20–118; RESP 18–20; TEMP 97.6–99.3; O2SAT 95–100
[2024-05-28] MEDS: ACETAMINOPHEN 325 MG TAB PO PRN (00:22)
[2024-05-28 07:12] LABS: Cholesterol 187 mg/dL (< 200); Triglycerides 220 mg/dL (< 150)
[2024-05-28 07:13] LABS: HDL Cholesterol 36 mg/dL (40-59); LDL Cholesterol 112 mg/dL (< 100)
[2024-05-28 08:33] LABS: Chloride 109 mmol/L (98-107); Potassium 3.3 mmol/L (3.5-5.1); Sodium 141 mmol/L (136-145)
[2024-05-28 08:35] LABS: Anion Gap 12 (5-15); Basophils # (auto) 0 10 ^3/uL (0-0.2); Basophils % (auto) 0.3 % (0.0-2.0); Calcium 9.3 mg/dL (8.7-10.4); Carbon Dioxide 20 mmol/L (20-31); Eosinophils # (auto) 0.3 10 ^3/uL (0-0.8); Hematocrit 35.6 % (41.0-53.0); Hemoglobin 12.2 g/dL (13.5-17.5); Lymphocytes # (auto) 1.4 10 ^3/uL (0.4-5.4); Lymphocytes % (auto) 15.8 % (10.0-50.0); Mean Corpuscular Hemoglobin 30.7 pg (28.0-32.0); Mean Corpuscular Hgb Conc. 34.1 g/dL (32.0-36.0); Mean Corpuscular Volume 90.1 fL (80.0-100.0); Monocytes # (auto) 0.6 10 ^3/uL (0-1.3); Monocytes % (auto) 7.1 % (0.0-12.0); Neutrophils # (auto) 6.5 10 ^3/uL (1.6-8.6); Neutrophils % (auto) 73.8 % (37.0-80.0); Platelet Count (auto) 169 10^3/uL (140-450); Red Blood Cells 3.95 10^6/uL (4.5-5.90); Red Cell Distribution Width 13.3 % (11.8-14.3); White Blood Cell 8.8 10^3/uL (4.4-10.8)
[2024-05-28 08:40] LABS: BUN/Creatinine Ratio 8.2 (10.0-20.0); Blood Urea Nitrogen 18 mg/dL (9-23); Glucose 114 mg/dL (74-106)
[2024-05-28] MEDS: CLOPIDOGREL BISULFATE 75 MG TAB PO SCH (10:06)
[2024-05-28] MEDS: LISINOPRIL 5 MG TAB PO SCH (10:07)
--- NOTE | 2024-05-28 11:39 | ECG ---
[facility] Test Date: 2024-05-24 Test Time: 21:21:44 Pat Name: JASON LIND Department: er Room: [facility]0T B Gender: M [employer]: am : 1950 Requested By: ESTRELLA DAVIS Order Number: [id number] Reading MD: Martin Ward Measurements Intervals [place] Rate: 94 P: 53 AK: 189 QRS: 50 QRSD: 73 T: 8 QT: 343 QTc: 429 Interpretive Statements Sinus rhythm Low voltage, precordial leads Electronically Signed On 05-28-2024 14:13:11 PST by Martin Ward Please click the below link to view image of tracing.
--- NOTE | 2024-05-28 12:15 | DVHPN2 ---
Progress Note Date Seen: May 28, 2024 Medical Necessity Reason Pt with a Central, PICC or Fol: No Subjective Patient reports: No new complaints Other Systems: Patient seen and examined by myself today in follow-up Objective vital signs Vital Sign Date Time Temp Pulse Resp B/P (MAP) Pulse Ox O2 Delivery O2 Flow Rate FiO2 05/28/24 10:07 151/71 05/28/24 09:00 98.1 64 20 100 98.1 20 05/27/24 20:00 Room Air* 0 21 Total Intake and Output 05/27/24 05/27/24 05/28/24 15:00 23:00 07:00 Intake Total 1000 ml 950 ml Output Total 300 ml 800 ml Balance 1000 ml -300 ml 150 ml medications Current Medications Medications Dose Ordered Sig/Flor Route Start Time Stop Time Status Last Admin Dose Admin Aspirin 81 mg DAILY PO 05/25/24 10:00 05/28/24 10:06 81 MG Tamsulosin HCl 0.4 mg QPM PO 05/25/24 18:00 05/27/24 17:31 0.4 MG Diagnostic Test (Pha) 1 strip ACHS 05/25/24 07:00 05/28/24 06:39 1 STRIP Insulin Human Regular HS SC 05/25/24 22:00 05/27/24 22:00 3 UNITS Insulin Human Regular AC SC 05/25/24 07:00 05/27/24 11:41 6 UNITS Dextrose 50 ml UD PRN IV 05/24/24 23:15 Acetaminophen 650 mg Q6HP PRN PO 05/24/24 23:15 05/28/24 00:22 650 MG Insulin Glargine 20 units QAM SC 05/25/24 22:00 05/28/24 06:50 20 UNITS Allopurinol 100 mg DAILY PO 05/26/24 10:00 05/28/24 10:05 100 MG Zirconium Oxide 10 gm TID PO 05/25/24 22:00 05/28/24 06:00 10 GM Hydralazine HCl 50 mg Q8H PO 05/25/24 15:30 05/27/24 23:58 50 MG Insulin Human Regular 7 units TID SC 05/25/24 15:30 Atorvastatin Calcium 80 mg HS PO 05/26/24 22:00 05/27/24 21:54 80 MG Sodium Chloride 1,000 ml @ 85 mls/hr [id number] IV 05/27/24 10:00 05/28/24 10:08 85 MLS/HR Clopidogrel Bisulfate 75 mg DAILY PO 05/28/24 10:00 05/28/24 10:06 75 MG Lisinopril 5 mg DAILY PO 05/28/24 10:00 05/28/24 10:07 5 MG Examination: LUNGS:Normal, CVS:Normal, MSK:Normal laboratory and microbiology Laboratory Tests 05/28/24 06:05 Test 05/28/24 06:05 Range/Units Serum Glucose 114 H 74-106 mg/dL Problem List/Assessment/Plan Problem List/Assessment/Plan Acute kidney injury superimposed Chronic Kidney Disease stage IIIB secondary hemodynamic mediated Diabetes mellitus type 2 Hypertension Hyperkalemia due to dietary indiscretion Hyperglycemia Recommendations Kidney function stabilize stage IIIB Increased urine output Hyperkalemia resolved Renal diet Insulin sliding scale Blood pressure control kidney ultrasound reported bilateral echogenic kidney I will sign off this case please refer patient to my office two weeks after discharge for Chronic Kidney Disease follow-up Thank you for the consult Plan discussed with: Patient My Orders My Orders Orders - WALDO ENAMORADO MD Procedure Category Date Status Time Communication Order ORDERS 05/27/24 Transmitted 13:08 WALDO ENAMORADO MD May 28, 2024 12:15
[2024-05-28] MEDS: POTASSIUM EFFERVESENT TAB 25 MEQ GT ONE (15:43)
[2024-05-28] MEDS ORDERED: CLOP75TA70 PO (16:29)
[2024-05-28] MEDS ORDERED: ATOR20TA50 PO (16:29)
[2024-05-28] MEDS ORDERED: ACET-1882 PO (16:29)
[2024-05-28] MEDS ORDERED: LISI-275 PO (16:29)
--- NOTE | 2024-05-28 17:17 | DVHDSRES ---
Discharge Summary Date of Admission Resident Creating Document: JONNATHAN PLASCENCIA RESIDENT May 24, 2024 at 23:32 Date of Discharge: May 28, 2024 Admitting Diagnosis Syncope Labs/Diagnostic Data: Laboratory Results Test 05/28/24 11:44 05/28/24 06:05 05/27/24 16:00 05/27/24 07:40 POC Glucose 226 mg/dl (70-106) White Blood Count 8.8 10^3/uL (4.4-10.8) Red Blood Count 3.95 10^6/uL (4.5-5.90) Hemoglobin 12.2 g/dL (13.5-17.5) Hematocrit 35.6 % (41.0-53.0) Mean Corpuscular Volume 90.1 fL (80.0-100.0) Mean Corpuscular Hemoglobin 30.7 pg (28.0-32.0) Mean Corpuscular Hemoglobin Concent 34.1 g/dL (32.0-36.0) Red Cell Distribution Width 13.3 % (11.8-14.3) Platelet Count 169 10^3/uL (140-450) Mean Platelet Volume 8.9 fL (6.9-10.8) Neutrophils (%) (Auto) 73.8 % (37.0-80.0) Lymphocytes (%) (Auto) 15.8 % (10.0-50.0) Monocytes (%) (Auto) 7.1 % (0.0-12.0) Eosinophils (%) (Auto) 3.0 % (0.0-7.0) Basophils (%) (Auto) 0.3 % (0.0-2.0) Neutrophils # (Auto) 6.5 10 ^3/uL (1.6-8.6) Lymphocytes # (Auto) 1.4 10 ^3/uL (0.4-5.4) Monocytes # (Auto) 0.6 10 ^3/uL (0-1.3) Eosinophils # (Auto) 0.3 10 ^3/uL (0-0.8) Basophils # (Auto) 0 10 ^3/uL (0-0.2) Nucleated Red Blood Cells 0.0 % Sodium Level 141 mmol/L (136-145) Potassium Level 3.3 mmol/L (3.5-5.1) Chloride Level 109 mmol/L (98-107) Carbon Dioxide Level 20 mmol/L (20-31) Anion Gap 12 (5-15) Blood Urea Nitrogen 18 mg/dL (9-23) Creatinine 2.19 mg/dL (0.700-1.30) Glomerular Filtration Rate Calc 31 mL/min (>90) BUN/Creatinine Ratio 8.2 (10.0-20.0) Serum Glucose 114 mg/dL (74-106) Calcium Level 9.3 mg/dL (8.7-10.4) Triglycerides Level 220 mg/dL (< 150) Cholesterol Level 187 mg/dL (< 200) LDL Cholesterol 112 mg/dL (< 100) HDL Cholesterol 36 mg/dL (40-59) Urine Creatinine 68.42 mg/dL (30.0-125.0) Urine Protein/Creatinine Ratio 1.46 Urine Sodium 99 mmol/L (40-220) Urine Total Protein 99.7 mg/dL (1-14) Urine Opiates Screen Neg (NEGATIVE) Urine Fentanyl Screen Neg (NEGATIVE) Urine Barbiturates Screen Neg (NEGATIVE) Urine Phencyclidine Screen Neg (NEGATIVE) Urine Amphetamines Screen Neg (NEGATIVE) Urine Benzodiazepines Screen Neg (NEGATIVE) Urine Cocaine Screen Neg (NEGATIVE) Urine Cannabinoids Screen Neg (NEGATIVE) Uric Acid 8.4 mg/dL (3.7-9.2) Test 05/26/24 04:33 05/25/24 16:13 05/25/24 06:03 05/24/24 21:31 Phosphorus Level 3.0 mg/dL (2.4-5.1) Magnesium Level 2.3 mg/dL (1.6-2.6) Vitamin D 25-Hydroxy 31.8 ng/mL (30.0-100) Free Thyroxine (T4) Calculated 1.12 ng/dL (0.89-1.76) Total Triiodothyronine (TT3) 0.65 ng/mL (0.60-1.81) Parathyroid Hormone (Intact) 143.7 pg/mL (18.4-80.1) Prothrombin Time 11.0 sec (9.3-11.8) Prothrombin Time INR 1.04 (0.9-1.15) Activated Partial Thromboplast Time 25.9 SEC (24.5-34.5) Hemoglobin A1c 8.8 % A1C (<5.7) B-Type Natriuretic Peptide 6.16 pg/mL (0-100) Vitamin B12 Level 663 pg/mL (211-911) Thyroid Stimulating Hormone (TSH) 0.37 uIU/mL (0.55-4.78) Total Bilirubin 0.5 mg/dL (0.2-1.0) Aspartate Amino Transferase (AST) 24 U/L (13-40) Alanine Aminotransferase (ALT) 27 U/L (7-40) Alkaline Phosphatase 98 U/L (46-116) Total Protein 7.6 g/dL (5.7-8.2) Albumin 4.6 g/dL (3.2-4.8) Troponin I High Sensitivity 4 ng/L (</=54) Test 05/24/24 19:35 Urine Color Colorless (Yellow) Urine Clarity Clear (Clear) Urine pH 5.0 (5.0-9.0) Urine Specific Walters 1.008 (1.001-1.035) Urine Protein 1+ (Negative) Urine Ketones Negative (Negative) Urine Blood Negative /uL (Negative) Urine Nitrite Negative (Negative) Urine Bilirubin Negative (Negative) Urine Urobilinogen Normal mg/dL (Negative) Urine Leukocyte Esterase 1+ /uL (Negative) Urine RBC 1 /hpf (0 - 3) Urine WBC 3 /hpf (0 - 3) Urine Squamous Epithelial Cells None seen /hpf (<5) Urine Bacteria None seen /hpf (None Seen) Urine Hyaline Casts Few /lpf (0 - 2) Urine Glucose 3+ mg/dL (Normal) Other Laboratory Tests 05/28/24 06:05 Brief Hx & Hospital Course: Gabriel Fernandes is a 74 years old bulgarian language speaking male with a PMH of HTN, dm, CKD presented to the ED with the chief complaints of weakness and syncope since day prior to admission. Patient reported yesterday he has been feeling generalized weakness, he has been taking rest on bed, he passed out but unable to recall what happened exactly before passing out. Patient was reported he has been feeling weakness, unable to eat, having feeling dizzy when he suddenly wake up from the chair or bed. Patient thought his weakness is due to low blood pressure and anemia. On my assessment patient denies fever, nausea, vomiting, diarrhea, chest pain, palpitations, diaphoresis and other associated symptoms. Patient required hospital admission for further evaluation and management of syncope. Head CT showed acute versus subacute stroke, ordered MRI which showed ovoid focal area of restricted diffusion in the left thalamus, most consistent with an acute or subacute infarct. patient was given Plavix, aspirin and Lipitor and physical therapy. Due to decreasing of renal function, consulted Nephrology, advised renal diet, blood pressure control and kidney ultrasound, showed bilateral echogenic kidneys. CT head and neck showed moderate to high- grade stenosis of the left supraclinoid internal carotid artery. No intracranial occlusion or aneurysm. continuously monitored blood glucose and blood pressure. Due to dehydration patient was given fluids, continuously monitored renal function. Patient condition was improved, hemodynamically stable and in condition to be discharged home with the physical therapy. Patient was advised about healthy lifestyle habits including diet and exercise. Patient was advised to follow up with PCP and Urology after the discharge. Pt is lying on bed General Appearance: Alert, Oriented X3, Cooperative, Not in acute distress HEENT: Atraumatic, Mucous membranes moist/pink Respiratory: Clear to auscultation, Normal air movement, No added sounds Cardiovascular: Regular rate, Normal S1, Normal S2, No murmurs Abdominal: Active bowel sounds, Soft, no distention, no tenderness Extremities: No edema, Normal pulses, No tenderness/swelling Skin: No Significant rash, except past surgical scars Neuro: Normal speech, sensorimotor deficits none Psych/Mental Status: Mental status NL, Mood NL Nurse was there as sharperone during examination Operations or Procedures CTA head with intravenous contrast. CTA neck with intravenous contrast. IMPRESSION: 1. Suspect a mi moderate to high-grade stenosis of the left supraclinoid internal carotid artery. No intracranial occlusion or aneurysm. 2.Mild to moderate, approximately 50% stenosis of the proximal left internal carotid artery. [id number] approximately 50% stenosis of the origin of the left subclavian artery. MRI images of the brain were obtained without contrast. Ovoid focal area of restricted diffusion in the left thalamus, most consistent with an acute or subacute infarct. Neoplasm would be less likely but not excluded in the appropriate clinical setting. There does not appear to be mass effect associated with this area of restricted diffusion. If there is clinical concern for mass, postcontrast imaging could be obtained. renal USG 1. No hydronephrosis bilaterally. 2. Nonspecific increased echogenicity of the bilateral kidneys, most commonly seen in the setting of chronic kidney disease. 3. Left renal simple appearing cysts measuring up to 1.[address] head Patchy periventricular and subcortical white matter hypoattenuation is nonspecific but may be related to small vessel ischemic disease. ECHO Conclusion Normal left ventricular size and dimension. Normal left ventricular systolic function estimated ejection fraction of 55%. There is a grade 1 diastolic dysfunction. Normal right ventricular size and dimension. Normal right ventricular systolic function. Moderately severely elevated right ventricular systolic pressure at 57 mm of mercury. Condition at Discharge: Stable Final Diagnosis/Problems List # acute ischemic stroke of thalamus # ? Orthostatic syncope # Dehydration # MONICO likely VM on CKD-improving # uncontrolled type 2 DM # HLD Discharge Disposition: Home with Health Services Discharge Instruct/Medications Diet: Consistent carbohydrate, Cardiac 2g Na,low cholest, Renal Activity: No Restrictions, As Tolerated Follow Up/Referral: PCP, NEPHROLOGY Medications: PER EMR Discharge Statement: "Patient was advised to return to the ER or call 911 if any headaches, dizziness, shortness of breath, chest pain, abdominal pain, bleeding, fevers, or worsening of medical condition. Patient was counseled about treatment plan, medications, possible side effects, patientverbalized understanding. All questions were answered to the best of my ability. This discharge took greater then 30 minutes in planning, reviewing documentation, counseling the patient, and discussing with other team members." ASSESSMENT ASSESSMENT Assessment ACUTE ISCHEMIC STROKE Date of Service: May 28, 2024 Billing Provider: AMINATA RODAS MD Common Visit Codes: 87053-KRE/OBS DISCH DAY >30min Coding Comment Comment Attending Attestation I saw and evaluated the patient. I reviewed the residents note and agree with findings and plan as documented in the residents note except as documented below. JONNATHAN PLASCENCIA RESIDENT May 28, 2024 17:17 AMINATA RODAS MD May 29, 2024 21:59
== END 2024-05-28 18:00 | disposition home health service (06) | DRG 45 ==
LOC: EDBD 17:55 → ER 17:55 → TELE 23:32 → TELE-WESTW 05-25 05:36
PROVIDERS: ADMIT Student in an Organized Health Care Education/Training Program; ATTEND Student in an Organized Health Care Education/Training Program
DX: I63.9 Cerebral infarction, unspecified (principal); N17.0 Acute kidney failure with tubular necrosis; E11.22 Type 2 diabetes mellitus with diabetic chronic kidney disease; N18.4 Chronic kidney disease, stage 4 (severe); E86.0 Dehydration; I12.9 Hypertensive chronic kidney disease with stage 1 through stage 4 chronic kidney disease, or unspecified chronic kidney disease; E11.65 Type 2 diabetes mellitus with hyperglycemia; E78.5 Hyperlipidemia, unspecified; E87.5 Hyperkalemia; E86.9 Volume depletion, unspecified; I95.1 Orthostatic hypotension; N40.0 Benign prostatic hyperplasia without lower urinary tract symptoms; E79.0 Hyperuricemia without signs of inflammatory arthritis and tophaceous disease; Z79.4 Long term (current) use of insulin; Z79.899 Other long term (current) drug therapy
CPT/HCPCS: 36415; 70450; 70496; 70551; 71045; 73560; 76775; 80048; 80053; 80061; 80307; 81001; 82306; 82570; 82607; 82962; 83036; 83735; 83880; 83970; 84100; 84156; 84300; 84439; 84443; 84480; 84484; 84550; 85025; 85610; 85730; 93005; 93306; 97110; 97116; 97163; G0378; J1815